=== PATIENT | male | born 1955 | race Caucasian/White ===

== ENCOUNTER → 2020-10-02 15:25 | Outpatient (BNVA) | payer MEDICARE, MEDICAID, SELFPAY | PROVIDERS: PCP Family Medicine; Visit Provider Nurse Practitioner Family | DX: M96.1 Postlaminectomy syndrome, not elsewhere classified (principal) | CPT/HCPCS: 99202 ==

== ENCOUNTER → 2020-10-16 15:30 | Outpatient (BNVA) | payer MEDICARE, MEDICAID, SELFPAY | PROVIDERS: PCP Family Medicine; Visit Provider Nurse Practitioner Family | DX: M96.1 Postlaminectomy syndrome, not elsewhere classified (principal); M54.2 Cervicalgia; M54.16 Radiculopathy, lumbar region; G62.9 Polyneuropathy, unspecified | CPT/HCPCS: 99212 ==

== ENCOUNTER → 2020-10-30 15:30 | Outpatient (BNVA) | payer MEDICARE, MEDICAID, SELFPAY | PROVIDERS: PCP Family Medicine; Visit Provider Nurse Practitioner Family | DX: Z13.89 Encounter for screening for other disorder (principal) | CPT/HCPCS: 99212 ==

== ENCOUNTER → 2020-11-27 14:57 | Outpatient (BNVA) | payer MEDICARE, MEDICAID, SELFPAY | PROVIDERS: PCP Family Medicine; Visit Provider Nurse Practitioner Family | DX: M54.16 Radiculopathy, lumbar region (principal) | CPT/HCPCS: 99212 ==

== ENCOUNTER → 2020-12-25 14:55 | Outpatient (BNVA) | payer MEDICARE, MEDICAID, SELFPAY | PROVIDERS: PCP Family Medicine; Visit Provider Nurse Practitioner Family | DX: M54.16 Radiculopathy, lumbar region (principal); Z79.899 Other long term (current) drug therapy | CPT/HCPCS: 99212 ==

== ENCOUNTER → 2021-02-19 13:49 | Outpatient (BNVA) | payer MEDICARE, MEDICAID, SELFPAY | PROVIDERS: PCP Family Medicine; Visit Provider Nurse Practitioner Family | DX: Z51.81 Encounter for therapeutic drug level monitoring (principal); M54.16 Radiculopathy, lumbar region | CPT/HCPCS: 99212 ==

== ENCOUNTER 2021-03-05 13:32 | Outpatient (REF) | payer MEDICARE, MEDICAID, SELFPAY | END 2021-03-05 13:33 | disposition home or self-care (01) | LOC: HO.MRI 13:32 | PROVIDERS: Visit Provider Nurse Practitioner Family | DX: Z13.89 Encounter for screening for other disorder (principal) ==

== ENCOUNTER → 2021-04-09 12:46 | Outpatient (BNVA) | payer MEDICARE, MEDICAID, SELFPAY | PROVIDERS: Visit Provider Nurse Practitioner Family | DX: M54.2 Cervicalgia (principal); M54.16 Radiculopathy, lumbar region; M53.9 Dorsopathy, unspecified | CPT/HCPCS: 99212 ==

== ENCOUNTER → 2021-06-04 12:57 | Outpatient (BNVA) | payer MEDICARE, MEDICAID, SELFPAY | PROVIDERS: PCP Family Medicine; Visit Provider Nurse Practitioner Family | DX: Z51.81 Encounter for therapeutic drug level monitoring (principal); F11.20 Opioid dependence, uncomplicated; M54.2 Cervicalgia; M54.16 Radiculopathy, lumbar region; M53.9 Dorsopathy, unspecified | CPT/HCPCS: 99212 ==

== ENCOUNTER → 2021-06-13 13:15 | Outpatient (BNVA) | payer MEDICARE, MEDICAID, SELFPAY | PROVIDERS: PCP Family Medicine; Visit Provider Nurse Practitioner Family | DX: G20 Parkinson's disease (principal); G47.12 Idiopathic hypersomnia without long sleep time; G47.33 Obstructive sleep apnea (adult) (pediatric); E83.10 Disorder of iron metabolism, unspecified; H81.399 Other peripheral vertigo, unspecified ear | CPT/HCPCS: 99212 ==

== ENCOUNTER → 2021-07-30 10:13 | Outpatient (BNVA) | payer MEDICARE, MEDICAID, SELFPAY | PROVIDERS: PCP Family Medicine; Visit Provider Nurse Practitioner Family | DX: M54.2 Cervicalgia (principal); M54.16 Radiculopathy, lumbar region; M53.9 Dorsopathy, unspecified | CPT/HCPCS: 99212 ==

== ENCOUNTER → 2021-09-12 13:25 | Outpatient (BNVA) | payer MEDICARE, MEDICAID, SELFPAY | PROVIDERS: PCP Family Medicine; Visit Provider Nurse Practitioner Family | DX: G20 Parkinson's disease (principal); G47.12 Idiopathic hypersomnia without long sleep time; G47.33 Obstructive sleep apnea (adult) (pediatric); Z79.899 Other long term (current) drug therapy | CPT/HCPCS: 99212 ==

== ENCOUNTER → 2021-09-24 12:50 | Outpatient (BNVA) | payer MEDICARE, MEDICAID, SELFPAY | PROVIDERS: PCP Family Medicine; Visit Provider Nurse Practitioner Family | DX: M54.16 Radiculopathy, lumbar region (principal); M54.2 Cervicalgia; M53.9 Dorsopathy, unspecified; Z79.891 Long term (current) use of opiate analgesic | CPT/HCPCS: 99212 ==

== ENCOUNTER → 2021-11-19 12:39 | Outpatient (BNVA) | payer MEDICARE, MEDICAID, SELFPAY | PROVIDERS: PCP Family Medicine; Visit Provider Nurse Practitioner Family | DX: Z79.891 Long term (current) use of opiate analgesic (principal) | CPT/HCPCS: 99211 ==

== ENCOUNTER → 2022-01-14 12:47 | Outpatient (BNVA) | payer MEDICARE, MEDICAID, SELFPAY | PROVIDERS: PCP Family Medicine; Visit Provider Nurse Practitioner Family | DX: M53.9 Dorsopathy, unspecified (principal); M54.16 Radiculopathy, lumbar region; M54.2 Cervicalgia; Z79.891 Long term (current) use of opiate analgesic | CPT/HCPCS: 99212 ==

== ENCOUNTER → 2022-02-25 08:21 | Outpatient (BNVA) | payer MEDICARE, MEDICAID, SELFPAY | PROVIDERS: PCP Family Medicine; Visit Provider Nurse Practitioner Family | DX: G20 Parkinson's disease (principal); G47.33 Obstructive sleep apnea (adult) (pediatric); G47.12 Idiopathic hypersomnia without long sleep time; Z79.899 Other long term (current) drug therapy | CPT/HCPCS: 99212 ==

== ENCOUNTER → 2022-03-11 13:08 | Outpatient (BNVA) | payer MEDICARE, MEDICAID, SELFPAY | PROVIDERS: PCP Family Medicine; Visit Provider Anesthesiology | DX: M54.2 Cervicalgia (principal); M54.16 Radiculopathy, lumbar region; M53.9 Dorsopathy, unspecified; F11.90 Opioid use, unspecified, uncomplicated | CPT/HCPCS: 99212 ==

== ENCOUNTER → 2022-05-07 10:17 | Outpatient (BNVA) | payer MEDICARE, MEDICAID, SELFPAY | PROVIDERS: PCP Family Medicine; Visit Provider Anesthesiology | DX: Z51.81 Encounter for therapeutic drug level monitoring (principal); F11.20 Opioid dependence, uncomplicated; M54.2 Cervicalgia; M54.16 Radiculopathy, lumbar region; M53.9 Dorsopathy, unspecified | CPT/HCPCS: 99212 ==

== ENCOUNTER → 2022-06-25 12:51 | Outpatient (BNVA) | payer MEDICARE, MEDICAID, SELFPAY | PROVIDERS: PCP Family Medicine; Visit Provider Nurse Practitioner Family | DX: G20 Parkinson's disease (principal); R51.9 Headache, unspecified; U09.9 Post COVID-19 condition, unspecified; G89.29 Other chronic pain; G47.33 Obstructive sleep apnea (adult) (pediatric); G47.12 Idiopathic hypersomnia without long sleep time | CPT/HCPCS: 99212 ==

== ENCOUNTER → 2022-07-02 12:58 | Outpatient (BNVA) | payer MEDICARE, MEDICAID, SELFPAY | PROVIDERS: PCP Family Medicine; Visit Provider Nurse Practitioner Family | DX: Z51.81 Encounter for therapeutic drug level monitoring (principal); F11.20 Opioid dependence, uncomplicated; M53.9 Dorsopathy, unspecified; M96.1 Postlaminectomy syndrome, not elsewhere classified; M54.16 Radiculopathy, lumbar region; M54.2 Cervicalgia | CPT/HCPCS: 99212 ==

== ENCOUNTER → 2022-08-27 13:02 | Outpatient (BNVA) | payer MEDICARE, MEDICAID, SELFPAY | PROVIDERS: PCP Family Medicine; Visit Provider Anesthesiology ==

== ENCOUNTER → 2022-10-22 12:48 | Outpatient (BNVA) | payer MEDICARE, MEDICAID, SELFPAY | PROVIDERS: PCP Family Medicine; Visit Provider Nurse Practitioner Family | DX: M96.1 Postlaminectomy syndrome, not elsewhere classified (principal); M53.9 Dorsopathy, unspecified; M54.12 Radiculopathy, cervical region; M54.16 Radiculopathy, lumbar region; M54.2 Cervicalgia; U09.9 Post COVID-19 condition, unspecified; R51.9 Headache, unspecified; Z79.891 Long term (current) use of opiate analgesic | CPT/HCPCS: 99212 ==

== ENCOUNTER 2022-12-14 13:25 | Outpatient (REF) | payer MEDICARE, MEDICAID, SELFPAY | END 2022-12-14 13:26 | disposition home or self-care (01) | LOC: HO.LAB 13:25 | PROVIDERS: PCP Family Medicine; Visit Provider Nurse Practitioner Family | DX: F41.9 Anxiety disorder, unspecified (principal); R53.83 Other fatigue; Z79.891 Long term (current) use of opiate analgesic | CPT/HCPCS: 36415; 84443; 99211 ==

== ENCOUNTER 2023-01-14 12:59 | Outpatient (AMB) | payer MEDICARE, MEDICAID, SELFPAY ==
[2023-01-14 13:02] VITALS: BP 142/78; PULSE 95; O2SAT 97; BMI 40.8
--- NOTE | 2023-01-14 13:02 | MHC.OFFVIS ---
Intake Vital Signs 01/14/23 13:02 Height 5 ft 9 in Weight 276 lb BMI 40.8 BP 142/78 H Blood Pressure Location Rt brachial Position Sitting Pulse 95 Pulse Source Pulse Oximeter Pulse Oximetry (%) 97 Oxygen Delivery Method Room Air Intake Visit Reasons: Follow up - Confirmed Intake Note: Pt presents as a f/u for Parkinsons. Pt states I've been getting alot of panic attacks and alot of anxiety. Trailer Technician Required: No Allergies celecoxib [Celebrex] Allergy (Severe, Verified 01/14/23 13:09) face/eye swelling gabapentin Allergy (Intermediate, Verified 01/14/23 13:09) rash pregabalin Allergy (Intermediate, Verified 01/14/23 13:09) rash Medication List - Last Reconciled 01/14/23 by ADALBERTO Martin albuterol sulfate 90 mcg/actuation 2 inhalations inhalation Q6-8H blood sugar diagnostic (Applied [employer] TechnologyTouch Ultra Test strips) As directed buprenorphine HCl (Belbuca) 450 mcg buccal Q12H 30 days carbidopa-levodopa 25-100 mg 1 tab PO TID 30 days dextroamphetamine-amphetamine 10 mg ER (Adderall XR) 10 mg PO DAILY 30 days diltiazem HCl 240 mg PO DAILY doxazosin 4 mg PO BEDTIME fluticasone propionate 50 mcg/actuation 2 sprays intranasal DAILY insulin aspart U-100 15 units subcut TID insulin detemir U-100 (Levemir FlexTouch U-100 Insulin) 65 units subcut QPM lisinopril 40 mg PO DAILY lorazepam (Ativan) 2 mg (2 x 1 mg) PO DAILY PRN 1 day magnesium oxide 400 mg PO BEDTIME 30 days metformin ER 1,000 mg PO BID pen needle, diabetic (BD Sandy 2nd Gen Pen Needle) As directed riboflavin (vitamin B2) 200 mg (2 x 100 mg) PO BID 30 days spironolactone 25 mg PO BEDTIME spironolactone 50 mg PO DAILY tirzepatide (Mounjaro) 2.5 mg subcut QWEEK zolpidem 10 mg PO BEDTIME PRN 30 days HPI HPI Comments History of Present Illness Details 67-yr-old male presents for f/u visit. Pt denies any significant interval medical history changes. Brain MRI was normal, however possible C3-C4 disc herniation was seen. Pt did f/u w/ pain management on this who advsied pt to undergo c-spine MRI, however pt has been unable to do d/t increasing anxiety. Pt's current PD medication regimen: CD-LD 25-100mg- 1 tab at 10-11am and 10-11pm. stopped mid-day dose- did not feel ok on it. the CD-LD Er qhs caused increased anxiety/ruminating thoughts. Do medication effects last between doses: usually Pt's primary concerns are: Increased anxiety- causing him to self-isolate. He is unable to complete the c-spine MRI d/t new onset claustrophia. He feels he has no motivation. He does not have a psychologist. He states approx 23 yrs ago- had an in-pt psych admission for worsening anxiety- was dx'd w/ bipolar II. He denies any manic episodes, SI, or severe depression. He was tried on Gabapentin- caused rash, Zoloft- caused increased irritability, Recent TSH was 2.06 NL, he is f/b endocrinology for slowly growing thyroid gland. ADL's: Ind Swallowing: Usually ok, but some difficulty at times with drinking, and other times with pills if standing. Cough: Resolved Drooling: Drooling during the day at times Orthostatic lightheadedness: Rarely orthostatic lightheadedness Constipation: None. Freezing: At times Stiffness: More stiffness and soreness, especially in the morning. Has difficulty turning in bed. Tremor: Shaking stable Falls: None Hallucinations: May still see an occasional shadow Memory: May lose his train of thought or have STM lapses Sleep: Somedays sleeping ok with CPAP but other days the anxiety interferes with his ability to fall asleep so he has to get up- tends to go to bed late (1-3am) and wake up late. Using Adderall XR prn if he has something to do during the day. Exercise: Has not had the energy to do much. Other: The headaches are no longer constant but still has a bothersome headache 3-4 times a week [facility] Medical History Bipolar 2 disorder Surgical History H/O neck surgery History of cholecystectomy History of knee replacement S/P laser cataract surgery Family History Father Heart attack Mother Congestive heart failure Social History (Updated 01/14/23 @ 13:11 by Sima Coker CMA) Household Members: Significant Other Alcohol intake: never Patient Tobacco Use Status: Former Tobacco user Quit Date: >20 yrs ago Review of Systems Const All systems reviewed & are unremarkable except as noted in HPI and below Physical Exam Vital Signs: Last Vital Signs Pulse 95 01/14/23 13:02 BP 142/78 H 01/14/23 13:02 Pulse Ox 97 01/14/23 13:02 Oxygen Delivery Method Room Air 01/14/23 13:02 BMI result Body Mass Index 40.8 Const General: cooperative and no acute distress Resp Effort & Inspection: normal respiratory effort and able to speak in complete sentences Neuro Other: Expression:? Mild decreased expression blink Voice:? Soft voice Tremor:? Mild postural tremor today FFM: mildly decreased Foottaps: mildly decreased Gait:? Stands up today, decreased arm swing steady gait Psych:? Pleasant affect General: patient oriented x3 and CN's II-XI intact bilaterally Assessment & Plan Assessment & Plan (1) Anxiety: Code(s): F41.9 - Anxiety disorder, unspecified (2) Parkinson disease: Comment: Positive JOELLEN scan, tremor, stiffness Code(s): G20 - Parkinson's disease Plan For PD: Reviewed MRI - normal. Pt to f/u w/ pain management r/t c-spine findings. Continue carbidopa levodopa 25-100mg 1 tab bid- tid. For anxiety in setting of h/o bipolar type II: Will refer pt for psychotherapy. Will reach out to [facility]- to see if they are taking new pt's again and could see this pt. Trial Trileptal 150mg bid. Check CBC and CMP, and then CBC and BMP in 6 weeks. Would avoid SSRI/SNRI d/t h/o SSRI use causing worsening mood. For SANDRO and fatigue: Continue CPAP. Continue Adderall 10 mg ER q.a.m. prn. Future considerations- increasing Adderall, trying Sunosi. (would need to ensure HTN well-controlled). For headache: Continue B2 and Mag for migraine prevention. Previous headache tx trials: Amitriptyline- caused am drowsiness. Nortriptyline- not tolerated. will f/u upon review of labs and f/u in clinic in 3 months or sooner prn. Orders: Orders Comprehensive Met. Panel Today F41.9 - Anxiety disorder, unspecified, G20 - Parkinson's disease, G62.9 - Polyneuropathy, unspecified Complete Blood Count Auto Diff Today F41.9 - Anxiety disorder, unspecified, G20 - Parkinson's disease, G62.9 - Polyneuropathy, unspecified Basic Metabolic Panel Today F41.9 - Anxiety disorder, unspecified, G20 - Parkinson's disease, G62.9 - Polyneuropathy, unspecified Referrals Psychology Referral F41.9 - Anxiety disorder, unspecified, G20 - Parkinson's disease Medications: New oxcarbazepine 150 mg PO BID 30 days 60 tabs 3RF Coding Level of Care Code Est Pt Level 4 (68647) Diagnoses Anxiety F41.9 Parkinson disease G20
== END 2023-01-14 14:00 | disposition home or self-care (01) ==
PROVIDERS: PCP Family Medicine; Visit Provider Nurse Practitioner Family
DX: F41.9 Anxiety disorder, unspecified (principal); G20 Parkinson's disease
CPT/HCPCS: 99214

== ENCOUNTER → 2023-01-14 12:59 | Outpatient (BNVA) | payer MEDICARE, MEDICAID, SELFPAY | PROVIDERS: PCP Family Medicine; Visit Provider Nurse Practitioner Family | DX: G20 Parkinson's disease (principal); F41.9 Anxiety disorder, unspecified; Z79.899 Other long term (current) drug therapy | CPT/HCPCS: 99212 ==

== ENCOUNTER → 2023-02-10 12:31 | Outpatient (BNVA) | payer MEDICARE, MEDICAID, SELFPAY | PROVIDERS: PCP Family Medicine; Visit Provider Anesthesiology | DX: Z51.81 Encounter for therapeutic drug level monitoring (principal); F11.20 Opioid dependence, uncomplicated | CPT/HCPCS: 99211 ==

== ENCOUNTER 2023-04-12 12:43 | Outpatient (AMB) | payer MEDICARE, MEDICAID, SELFPAY ==
--- NOTE | 2023-04-12 13:00 | MHC.OFFVIS ---
Intake Vital Signs 04/12/23 13:08 Height 5 ft 9 in Weight 263 lb BMI 38.8 BP 136/80 Blood Pressure Location Lt brachial Position Sitting Respiration 16 Pulse 89 Pulse Source Pulse Oximeter Pulse Oximetry (%) 96 Oxygen Delivery Method Room Air Intake Visit Reasons: Pill count/LMOVM Intake Note: Patient comes in for pill count to Buprenorphine film. Allergies celecoxib [Celebrex] Allergy (Severe, Verified 04/12/23 13:08) face/eye swelling gabapentin Allergy (Intermediate, Verified 04/12/23 13:08) rash pregabalin Allergy (Intermediate, Verified 04/12/23 13:08) rash HPI HPI Comments History of Present Illness Details Patient is a pleasant 67 years old male who returns today for a film count. Patient is supposed to have 38 films in his possession and has 44 films is his possession.. This demonstrates a responsible attitude in regards to the medication regimen. Patient reports he is able to function more independently with this regimen as well as adequate analgesia, with no noted side effects. Patient reports he has dentures, denies mouth sores or pain, uses mouthwash regularly and has regular dental visits. Patient reports increasing neck pain that radiates up to his bilateral occipital areas and shoulders and into left lateral upper arm but not below elbow level with numbness and tingling and mild weakness in his left lower arm. Patient has history of C6-C7 fusion in 2009. We will proceed with updating his cervical spine MRI. PRIOR: Brian is a pleasant 65 year old male who presents to the office with complaints of neck, low back pain as well as peripheral neuropathy. He underwent a C6-C7 fusion with Dr. Tabor in 2009 at [facility]. He states the pain started years ago without any inciting events, but in the past few months has been more exacerbated. His back pain starts midline and radiates towards the right and laterally down the right leg to entire foot with associated muscle spasms, numbness and tingling. Denies any weakness, saddle anesthesia or bowel/bladder dysfunction. He also notes progressively worsening burning sensation of bilateral feet. In the past he was under the care of pain management providers who attempted lidocaine and ketamine infusion with no alleviation in his pain. He also reports receiving botox injections in his lower back with no improvement. He is unable to have steroid injections due to the significant elevation in blood glucose. He was started on belbuca 600 mg BID and has reported good alleviation in his pain. Unfortunately, his previous provider is quite a distance away and would like to continue his prescription here, as well as discuss other interventional treatment options. Of note, he is being sent on 10/04 for a PET scan by his neurologist from [facility] to rule out Parkinson's disease, as he has had increasing difficulty with ambulation, mood changes, slowed blinking, hypersomnia and muscle spasms. Asthma, COPD, HTN, DMII, CKD, s/p adrenalectomy secondary to hyperaldosteronism, SANDRO, He is currently managed on Metformin and insulin with an A1c of 7.6%. [facility] Medical History (Updated 02/11/23 @ 21:25 by ADALBERTO Martin) Bipolar 2 disorder Surgical History S/P laser cataract surgery History of cholecystectomy History of knee replacement H/O neck surgery Family History Father Heart attack Mother Congestive heart failure Social History (Updated 01/14/23 @ 13:11 by Sima Coker CMA) Household Members: Significant Other Alcohol intake: never Patient Tobacco Use Status: Former Tobacco user Quit Date: >20 yrs ago Review of Systems Const All systems reviewed & are unremarkable except as noted in HPI and below ENT Reports Normal hearing present Neuro Reports Normal hearing present, Denies Abnormal speech present and Denies confusion Psych Denies confusion Physical Exam Vital Signs: Last Vital Signs Pulse 89 04/12/23 13:08 Resp 16 04/12/23 13:08 BP 136/80 04/12/23 13:08 Pulse Ox 96 04/12/23 13:08 Oxygen Delivery Method Room Air 04/12/23 13:08 BMI result Body Mass Index 38.8 Const General: cooperative, healthy appearing, no acute distress, alert and well groomed; No confusion Nutritional Appearance: well nourished and obese Orientation/consciousness: patient oriented x3 and No confusion HEENT Head: Yes normal to inspection, Yes normocephalic and Yes atraumatic Ears: hearing grossly normal bilaterally Eyes General: appearance normal, both eyes and all related structures Visual Cantrell: normal visual cantrell by confrontation Pupils: Equal, round and reactive pupils present EOM: EOMs intact bilaterally Neck Other: Patient with decreased cervical ROM in all planes/especially with left lateral rotation. Reports increased pain with cervical extension and flexion. Spurling compression test positive. Pain is unchanged by Spurling maneuver with retraction. Elvey's tension test positive bilaterally, with radiation of pain from neck to lateral upper arm and elbow. Lhermitte's test was negative. Diminished DTR and symmetrical. Patient demonstrated 5/5 motor strength of bilateral upper extremities. 2 + radial pulses. Neck: Yes normal visual inspection, Yes no lymphadenopathy, No anterior neck swelling and Yes no JVD Resp Effort & Inspection: normal respiratory effort, able to speak in complete sentences, no audible wheezes, no cough and symmetric chest movement Cardio Jugular venous distension: no JVD Peripheral pulses: Peripheral pulses 2+ throughout GI Inspection: Yes normal to inspection, No distended and Yes obesity Palpation (GI): Soft to palpation and no guarding Back/Spine/Pelvis Cervical Spine: loss of normal cervical lordosis, cervical muscular tenderness, pain with cervical ROM, Cervical spine scars present, No Cervical spine tenderness and No step off deformity Thoracic/Lumbar Spine: thoraco-lumbar ROM limited, No thoracic spinal tenderness and No lumbar spinal tenderness Neuro General: patient oriented x3, moves all extremities and No confusion Cranial nerves: Yes Equal, round and reactive pupils present and Yes Normal hearing present Cognition (Neuro): normal cognition Speech: No Abnormal speech present Psych Appearance: grossly normal and well kempt Mental Status: mental status grossly normal Speech and movement: Normal speech and movement present Affect: normal affect Attitude: cooperative Thought process: Normal thought process present Thought content: Normal thought content present, suicidality (none), no hallucinations and No Depressive thoughts present Insight: Good insight present (Psych) Judgement: Good judgement present (Psych) Assessment & Plan Assessment & Plan (1) Post-laminectomy syndrome: Code(s): M96.1 - Postlaminectomy syndrome, not elsewhere classified (2) Multilevel degenerative disc disease: Code(s): M53.9 - Dorsopathy, unspecified (3) Cervical radiculopathy: Code(s): M54.12 - Radiculopathy, cervical region (4) Multilevel degenerative disc disease: Code(s): M53.9 - Dorsopathy, unspecified (5) Lumbar radiculopathy, right: Code(s): M54.16 - Radiculopathy, lumbar region (6) Cervicalgia: Code(s): M54.2 - Cervicalgia Plan Patient has shown accountability for his medication regimen and the film count was accurate. The patient reported no noted side effects with adequate analgesia mainly for his cervical and lumbar spine pain generators. There is no evidence of misuse, abuse or diversion at this time. [employer] reviewed. I will send in prescription for Belbuca 450 mcg BID for 30 days with an advanced date of 05/02/2023 and one refill. Medications: Refilled buprenorphine HCl (Belbuca) Partial Fill upon patient request. 450 mcg buccal Q12H 60 ea 1RF pain 30 days M53.9 - Dorsopathy, unspecified, M54.16 - Radiculopathy, lumbar region, M96.1 - Postlaminectomy syndrome, not elsewhere classified Coding Level of Care Code Est Pt Level 3 (87764) Diagnoses Post-laminectomy syndrome M96.1 Multilevel degenerative disc disease M53.9 Cervical radiculopathy M54.12 Lumbar radiculopathy, right M54.16 Cervicalgia M54.2
[2023-04-12 13:08] VITALS: BP 136/80; PULSE 89; RESP 16; O2SAT 96; BMI 38.8
== END 2023-04-12 13:15 | disposition home or self-care (01) ==
PROVIDERS: PCP Family Medicine; Visit Provider Anesthesiology
DX: M96.1 Postlaminectomy syndrome, not elsewhere classified (principal); M53.9 Dorsopathy, unspecified; M54.12 Radiculopathy, cervical region; M54.16 Radiculopathy, lumbar region; M54.2 Cervicalgia
CPT/HCPCS: 99213

== ENCOUNTER 2023-04-12 13:27 | Outpatient (REF) | payer MEDICARE, MEDICAID, SELFPAY ==
[2023-04-12 13:41] LABS: MANUAL DIFF FLAG NO
[2023-04-12 14:58] LABS: Basophils Percent Auto 0.7 % (0-2); Eosinophils Absolute Auto 0.4 X10*3/uL (0.0-0.4); Eosinophils Percent Auto 6.7 % (0-4); Hematocrit 41.9 % (42.0-52.0); Hemoglobin 13.8 g/dl (14.0-18.0); Imm Gran Abs Auto 0.03 X10*3/uL (0.00-0.03); Imm Gran Pct Auto 0.5 % (0.0-0.4); Lymphocytes Absolute Auto 1.5 X10*3/uL (1.2-4.9); Lymphocytes Percent Auto 25.1 % (20-40); Mean Corpuscular HGB Conc 32.9 g/dl (31.0-36.0); Mean Corpuscular Hemoglobin 30.1 pg (27.0-33.0); Mean Corpuscular Volume 91.5 fL (80.0-98.0); Mean Platelet Volume 10.2 fL (9.4-12.4); Monocytes Absolute Auto 0.4 X10*3/uL (0.1-1.2); Monocytes Percent Auto 7.2 % (2-11); Neutrophils Absolute Auto 3.5 x10*3/uL (2.0-8.3); Neutrophils Percent Auto 59.8 % (45-73); Platelet Count 248 X10*3/uL (160-400); Red Blood Count 4.58 X10*6/uL (4.60-5.80); Red Cell Distribution Width 12.2 % (11.0-16.0); White Blood Count 5.8 X10*3/uL (4.8-10.8)
[2023-04-12 15:33] LABS: Alanine Aminotransferase 17 U/L (0-40); Albumin Level 4.3 g/dL (3.5-5.0); Alkaline Phosphatase 54 U/L (39-117); Anion Gap 15 (12-20); Aspartate Amino Transferase 38 U/L (5-37); Bilirubin Total 0.3 mg/dL (0.0-1.0); Blood Urea Nitrogen 16 mg/dL (9-16); Calcium 9.5 mg/dL (8.4-10.2); Carbon Dioxide 26 mmol/L (22-29); Chloride 105 mmol/L (96-108); Estimated Glomerular Filt Rate > 60; Glucose Random 140 mg/dL (60-115); Potassium 4.3 mmol/L (3.3-5.1); Sodium 142 mmol/L (135-145); Total Protein 7.8 g/dL (6.5-8.0)
== END 2023-04-12 13:28 | disposition home or self-care (01) ==
LOC: HO.LAB 13:27
PROVIDERS: PCP Family Medicine; Visit Provider Nurse Practitioner Family
DX: G62.9 Polyneuropathy, unspecified (principal); F41.9 Anxiety disorder, unspecified; G20.C Parkinsonism, unspecified
CPT/HCPCS: 36415; 80053; 85025; 99212

== ENCOUNTER 2023-04-28 13:26 | Outpatient (AMB) | payer MEDICARE, MEDICAID, SELFPAY ==
[2023-04-28 13:34] VITALS: BP 132/70; PULSE 85; O2SAT 97; BMI 39.1
--- NOTE | 2023-04-28 13:34 | A.OFFVIS_ITS ---
Intake Vital Signs 04/28/23 13:34 Height 5 ft 9 in Weight 264 lb 8 oz BMI 39.1 BP 132/70 Blood Pressure Location Rt brachial Position Sitting Pulse 85 Pulse Source Pulse Oximeter Pulse Oximetry (%) 97 Oxygen Delivery Method Room Air Intake Visit Reasons: 3m Follow up-LVM Intake Note: Pt presents to the office today for a 3 month follow up. Pt states he still doesn't fall asleep till 2-4am in the morning and will wake up around 10am. Pt states he is always tired. Pt states the adderall used to help in the beginning but believes its no longer helpful. Pt states he constantly has headaches as well but that started after he had COVID about a year ago. Allergies celecoxib [Celebrex] Allergy (Severe, Verified 04/28/23 13:37) face/eye swelling gabapentin Allergy (Intermediate, Verified 04/28/23 13:37) rash pregabalin Allergy (Intermediate, Verified 04/28/23 13:37) rash Medication List - Last Reconciled 04/28/23 by ADALBERTO Martin albuterol sulfate 90 mcg/actuation 2 inhalations inhalation Q6-8H blood sugar diagnostic ([employer] MedicalTouch Ultra Test strips) As directed buprenorphine HCl (Belbuca) 450 mcg buccal Q12H 30 days carbidopa-levodopa 25-100 mg 1 tab PO TID 30 days dextroamphetamine-amphetamine 10 mg ER (Adderall XR) 10 mg PO DAILY 30 days diltiazem HCl 240 mg PO DAILY doxazosin 4 mg PO BEDTIME fluticasone propionate 50 mcg/actuation 2 sprays intranasal DAILY insulin aspart U-100 15 units subcut TID insulin detemir U-100 (Levemir FlexTouch U-100 Insulin) 65 units subcut QPM lisinopril 40 mg PO DAILY lorazepam (Ativan) 2 mg (2 x 1 mg) PO DAILY PRN 1 day magnesium oxide 400 mg PO BEDTIME 30 days metformin ER 1,000 mg PO BID oxcarbazepine 150 mg PO BID 30 days pen needle, diabetic (BD Sandy 2nd Gen Pen Needle) As directed riboflavin (vitamin B2) 200 mg (2 x 100 mg) PO BID 30 days spironolactone 25 mg PO BEDTIME spironolactone 50 mg PO DAILY tirzepatide (Mounjaro) 2.5 mg subcut QWEEK zolpidem 10 mg PO BEDTIME PRN 30 days HPI HPI Comments History of Present Illness Details 67-yr-old male presents for f/u visit. Pt denies any significant interval medical history changes. Pt did see Dr Kranthi Mabry MD to discuss mood dx and tx options. Per pt, Dr Mabry has provided recommendations but will not be following with him. Dr Mabry did arrange for pt to start seeing a therapist. Pt continues to struggle with depression and anxiety. He did stop Trileptal- was not tolerating. Pt's current PD medication regimen: CD-LD 25-100mg 1 tab bid. ADL's: Ind Swallowing: Less often Drooling: Some- not too much Orthostatic lightheadedness: None Constipation: Occasionally Freezing: A bit more often Stiffness: Some increased Tremor: Shaking more Falls: None Hallucinations: Seeing more colors than shadows now Memory: LTM is ok. Finds STM is a bit worse- forgets what he may do, or have w ord finding difficulty Sleep: He is feeling that the Adderall is not working as well. Exercise: None. States his BLE diabetic neuropathy pain limits exercise. [facility] Medical History Bipolar 2 disorder Surgical History S/P laser cataract surgery History of cholecystectomy History of knee replacement H/O neck surgery Family History Father Heart attack Mother Congestive heart failure Household Members: Significant Other Alcohol intake: never Patient Tobacco Use Status: Former Tobacco user Quit Date: >20 yrs ago Review of Systems Const All systems reviewed & are unremarkable except as noted in HPI and below Physical Exam Vital Signs: Last Vital Signs Pulse 85 04/28/23 13:34 BP 132/70 04/28/23 13:34 Pulse Ox 97 04/28/23 13:34 Oxygen Delivery Method Room Air 04/28/23 13:34 BMI result Body Mass Index 39.1 Const General: cooperative and no acute distress Resp Effort & Inspection: normal respiratory effort and able to speak in complete sentences Neuro Other: General: A&O x's 3 Expression:? Mild decreased expression blink Voice:? Soft voice Tremor:? No tremor today FFM: mildly decreased Foottaps: mildly decreased Gait:? Stands up today, decreased arm swing steady gait Psych:? Pleasant affect Assessment & Plan Assessment & Plan (1) Parkinson disease: Comment: Positive JOELLEN scan, tremor, stiffness Code(s): G20 - Parkinson's disease (2) Fatigue: Code(s): R53.83 - Other fatigue (3) Anxiety: Code(s): F41.9 - Anxiety disorder, unspecified (4) Bipolar disorder, unspecified: Code(s): F31.9 - Bipolar disorder, unspecified Plan For PD: Continue carbidopa levodopa 25-100mg 1 tab bid, may take tid as needed. For anxiety in setting of h/o bipolar d/o: Reviewed Dr Mabry's note w/ pt. Pt has stopped Trileptal. Will start pt on?lamotrigine 25 mg daily?x two weeks, then increase to 50 mg?daily x two weeks, then 100 mg daily x 2 weeks, and then 200 mg. Reviewed s/e's including to report any s/s rash or skin changes. Concur w/ starting psychotherapy Future considerations- adjuncting w/ Wellbutrin and possibly weaning off Ambien. For SANDRO and fatigue: Continue CPAP. Increase Adderall from 10 mg to 15mg ER q.a.m. prn. Pt may benefit from reading/listening to [employer] [place] [employer] Insomnia by Dr Jordin Valencia or similar CBTi resources. Future considerations- increasing Adderall, trying Sunosi. (would need to ensure HTN well-controlled). For headache: Continue B2 and Mag for migraine prevention. Previous headache tx trials: Amitriptyline- caused am drowsiness. Nortriptyline- not tolerated. will f/u in 1-1.5 months or sooner prn. Medications: New dextroamphetamine-amphetamine 15 mg ER (Adderall XR) Partial Fill upon patient request. 15 mg PO QAM PRN 30 caps 0RF drowsiness 30 days lamotrigine 1 tab qhs x's 2 wks, then 2 tabs qhs x's 2 wks orally daily; then increase to 100mg qhs x's 2 wks, then 200mg qhs 42 tabs 0RF 28 days lamotrigine 1 tab qhs x's 2 wks, then 2 tabs qhs orally daily; 60 tabs 2RF 30 days Discontinued dextroamphetamine-amphetamine 10 mg ER (Adderall XR) Discontinued Reason: Doctor's Order 10 mg PO DAILY 30 caps 0RF 30 days Coding Level of Care Code Est Pt Level 4 (92001) Diagnoses Parkinson disease G20 Fatigue R53.83 Anxiety F41.9 Bipolar disorder, unspecified F31.9
== END 2023-04-28 14:35 | disposition home or self-care (01) ==
PROVIDERS: PCP Family Medicine; Visit Provider Nurse Practitioner Family
DX: G20.A2 Parkinson's disease without dyskinesia, with fluctuations (principal); R53.83 Other fatigue; F41.9 Anxiety disorder, unspecified; F31.9 Bipolar disorder, unspecified
CPT/HCPCS: 99214

== ENCOUNTER → 2023-04-28 13:26 | Outpatient (BNVA) | payer MEDICARE, MEDICAID, SELFPAY | PROVIDERS: PCP Family Medicine; Visit Provider Nurse Practitioner Family | DX: G20.A1 Parkinson's disease without dyskinesia, without mention of fluctuations (principal); R53.83 Other fatigue; F31.9 Bipolar disorder, unspecified; F41.9 Anxiety disorder, unspecified | CPT/HCPCS: 99212 ==

== ENCOUNTER 2024-02-18 13:47 | Outpatient (AMB) | payer MEDICARE, MEDICAID, SELFPAY ==
--- NOTE | 2024-02-18 13:51 | A.OFFVIS_ITS ---
Vital Signs 02/18/24 13:52 Height 5 ft 9 in Weight 242 lb BMI 35.7 BP 144/74 H Blood Pressure Location Rt brachial Position Sitting Pulse 74 Pulse Source Pulse Oximeter Pulse Oximetry (%) 96 Intake Visit Reasons: Follow Up Intake Note: Patient presents for follow up Allergies celecoxib [Celebrex] Allergy (Severe, Verified 02/18/24 13:55) face/eye swelling gabapentin Allergy (Intermediate, Verified 02/18/24 13:55) rash pregabalin Allergy (Intermediate, Verified 02/18/24 13:55) rash Medication List - Last Reconciled 02/18/24 by ADALBERTO Martin albuterol sulfate 90 mcg/actuation 2 inhalations inhalation Q6-8H blood sugar diagnostic (Hitmeister Ultra Test strips) As directed buprenorphine HCl (Belbuca) 450 mcg buccal Q12H 30 days carbidopa-levodopa 25-100 mg 1 tab PO TID 30 days dextroamphetamine sulfate ER 15 mg PO DAILY 30 days dextroamphetamine-amphetamine 15 mg ER (Adderall XR) 15 mg PO QAM PRN 30 days diltiazem HCl CD 360 mg PO DAILY doxazosin 8 mg PO BEDTIME fluticasone propionate 50 mcg/actuation 2 sprays intranasal DAILY gabapentin 300 mg PO BEDTIME insulin aspart U-100 15 units subcut TID insulin detemir U-100 (Levemir FlexTouch U-100 Insulin) 65 units subcut QPM lamotrigine 1 tab qhs x's 2 wks, then 2 tabs qhs orally daily; 30 days lisinopril 40 mg PO DAILY lorazepam (Ativan) 2 mg (2 x 1 mg) PO DAILY PRN 1 day magnesium oxide 400 mg PO BEDTIME 30 days metformin ER 1,000 mg PO BID oxcarbazepine 150 mg PO BID 30 days pen needle, diabetic (BD Sandy 2nd Gen Pen Needle) As directed riboflavin (vitamin B2) 200 mg (2 x 100 mg) PO BID 30 days spironolactone 25 mg PO BEDTIME spironolactone 50 mg PO DAILY tirzepatide (Mounjaro) 2.5 mg subcut QWEEK zolpidem 10 mg PO BEDTIME PRN 30 days HPI Comments Details: 68-yr-old male presents for f/u visit of Parkinson's, SANDRO, hypersomnia. Pt was alst seen in Apr 2024. Pt reports he has had a significant weight loss- partly intentional and partly unintentional. He attributes this in apart d/t mami fleming. Pt did have Covid-19 in Jul. Pt also notes he stopped Belbuca as he has stopped seeing pain management. PCP retried him on Gabapentin 300mg as he had recurrence of burning/heat diabetic neuropathy pain in chad feet upon stopping belbuca. He had a listed allergy to Gabapentin - rash, but is tolerating the Gabapentin well now, and it does seem to be helping the foot pain. Pt's current PD medication regimen: CD-LD 25-100mg 1 tab tid. Did increase the CD-LD from 1 tab bid to 1 tab tid as he was having some wearing off- more difficulty walking. In regards to PD, has good days and bad days. ADL's: Ind Swallowing: Has been having intermittent swallowing difficulty w/ fluids and less often solids. Notes he cannot take a drink standing up. Sometimes it will feel like solids just sit in the back of his trhoat. PCP has referred him for swallow study and now PRODUCTION CONTROL SPECIALIST. Drooling: Some- not as much Orthostatic lightheadedness: Occasionally, but does this slowly to avoid this. Constipation: More recently increased constipation- notes his metformin dose was decreased. Metamucil helps. Urinary symptoms: Was having some urinary frequency/urgency/feeling of incomplete voiding- helped w/ stopping carbonated bevergaes and increasing doxazosin. Gait changes: can feel unsteady after standing. CD-LD increase has helped him to walk better. Trying to focus on posture when walking. Fall: none Freezing: Rarely- if standing up from standing. Cramps/Spasms: Mostly in his feet and some in his hands. Sometimes arm just moves. Stiffness: Stable Tremor: Not too bad- but shakier after taking the destroamphetamine sulfate ER 15mg (also makes his BP rise, causes jitteriness, and causes headache). Mood: Has been a lot better. Not becoming as anxious. Not crying as much. He has started seeing a therapist- now every 4 months. Hallucinations: Seeing more colors than shadows now Memory: LTM is ok. Finds STM is a bit worse- forgets what he may do, or have word finding difficulty Sleep: Sleeping 6 hrs per night regardless of what time he goes to sleep. Not taking naps. Adderal was changed to dextroamphetamine sulfate ER per insurance formulary. Using the dextroamphetamine sulfate ER 15mg prn only about once a week as it causes his BP rise, causes jitteriness, and causes headache. He notes that the Adderal was much more effective and better tolerated. He is using less Ambien- may take half tab a night. Exercise: Walks a little bit. Cancelled gym membership as he was not using it. His resp s/s also limit his mobility. [facility] Medical History Bipolar 2 disorder Surgical History S/P laser cataract surgery History of cholecystectomy History of knee replacement H/O neck surgery Family History Father Heart attack Mother Congestive heart failure Social History Household Members: Significant Other Alcohol intake: never Patient Tobacco Use Status: Former Tobacco user Review of Systems Const All systems reviewed & are unremarkable except as noted in HPI and below Physical Exam Vital Signs: Last Vital Signs Pulse 74 02/18/24 13:52 BP 144/74 H 02/18/24 13:52 Pulse Ox 96 02/18/24 13:52 BMI result Body Mass Index 35.7 Const General: cooperative and no acute distress Resp Effort & Inspection: normal respiratory effort and able to speak in complete sentences Neuro Other: General: A&O x's 3 Expression:? Mild decreased expression blink Voice:? Soft voice Tremor:? No tremor today Dyskinesia: None FFM: mildly decreased Foottaps: mildly decreased, more so on left Gait:? Stands up today, slight stoop, decreased arm swing, stride ok, steady gait Psych:? Pleasant affect Assessment & Plan Assessment & Plan (1) Parkinson's disease without dyskinesia: Comment: Positive JOELLEN scan, tremor, stiffness Code(s): G20.A1 - Parkinson's disease without dyskinesia, without mention of fluctuations Category: Medical (2) Obstructive sleep apnea (adult) (pediatric): Code(s): G47.33 - Obstructive sleep apnea (adult) (pediatric) Category: Medical (3) Hypersomnia due to medical condition: Comment: d/t Parkinson's and SANDRO. Code(s): G47.14 - Hypersomnia due to medical condition Category: Medical Plan ? For PD, fatigue, SANDRO: Continue carbidopa levodopa 25-100mg 1 tab TID Concur w/ PRODUCTION CONTROL SPECIALIST and swallow eval- discussed strategies to break swallwoing diff c/w freezing epsiode. Continue CPAP. Stop dextroamphetamine sulfate 15mg ER- not tolerated. Resume Adderall at 15mg ER q.a.m. prn. Pt may benefit from reading/listening to [facility] Insomnia by Dr Jordin Valencia or similar CBTi resources. Future considerations- increasing Adderall, trying Sunosi. (would need to ensure HTN well-controlled).? For anxiety in setting of h/o bipolar d/o: Continue psychotherapy Pt previously had psych consult w/ Dr Mabry's note w/ pt. Pt has stopped Trileptal and lamotrigine. Monitor mood: ? For headache: Continue Mag for migraine prevention. Pt stopped B2. Previous headache tx trials: Amitriptyline- caused am drowsiness. Nortriptyline- not tolerated. ? will f/u in 6 months or sooner prn. Medications: New metformin 500 mg PO BID dextroamphetamine-amphetamine 15 mg ER (Adderall XR) Partial Fill upon patient request. 15 mg PO QAM 30 days 30 caps 0RF G20.A1 - Parkinson's disease without dyskinesia, without mention of fluctuations, G47.14 - Hypersomnia due to medical condition, G47.33 - Obstructive sleep apnea (adult) (pediatric) tirzepatide (Mounjaro) 5 mg subcut QWEEK Refilled carbidopa-levodopa 25-100 mg 1 tab PO TID 30 days 90 tabs 6RF Discontinued riboflavin (vitamin B2) Discontinued Reason: Patient no longer taking 200 mg (2 x 100 mg) PO BID 30 days 120 tabs 11RF lorazepam (Ativan) Take 2 tabs 30' before the procedure. Discontinued Reason: No Longer Medically Relevant 2 mg (2 x 1 mg) PO DAILY 1 day PRN 2 tabs 0RF MRI anxiety dextroamphetamine-amphetamine 15 mg ER (Adderall XR) Partial Fill upon patient request. Discontinued Reason: Patient Completed Course 15 mg PO QAM 30 days PRN 30 caps 0RF drowsiness buprenorphine HCl (Belbuca) Partial Fill upon patient request. Discontinued Reason: Patient no longer taking 450 mcg buccal Q12H 30 days 60 ea 1RF pain M53.9 - Dorsopathy, unspecified, M54.16 - Radiculopathy, lumbar region, M96.1 - Postlaminectomy syndrome, not elsewhere classified lamotrigine Discontinued Reason: Patient no longer taking 1 tab qhs x's 2 wks, then 2 tabs qhs orally daily; 30 days 60 tabs 2RF oxcarbazepine Discontinued Reason: Patient no longer taking 150 mg PO BID 30 days 60 tabs 3RF dextroamphetamine sulfate ER Partial Fill upon patient request. Discontinued Reason: Doctor's Order 15 mg PO DAILY 30 days 30 caps 0RF Coding Level of Care Code Est Pt Level 4 (60344) Diagnoses Parkinson's disease without dyskinesia G20.A1 Obstructive sleep apnea (adult) (pediatric) G47.33 Hypersomnia due to medical condition G47.14
[2024-02-18 13:52] VITALS: BP 144/74; PULSE 74; O2SAT 96; BMI 35.7
== END 2024-02-18 14:56 | disposition home or self-care (01) ==
PROVIDERS: PCP Family Medicine; Visit Provider Nurse Practitioner Family
DX: G20.A1 Parkinson's disease without dyskinesia, without mention of fluctuations (principal); G47.33 Obstructive sleep apnea (adult) (pediatric); G47.14 Hypersomnia due to medical condition
CPT/HCPCS: 99214

== ENCOUNTER → 2024-02-18 13:47 | Outpatient (BNVA) | payer MEDICARE, MEDICAID, SELFPAY | PROVIDERS: PCP Family Medicine; Visit Provider Nurse Practitioner Family | DX: G20.A1 Parkinson's disease without dyskinesia, without mention of fluctuations (principal); G47.33 Obstructive sleep apnea (adult) (pediatric); G47.14 Hypersomnia due to medical condition; M53.9 Dorsopathy, unspecified; M54.16 Radiculopathy, lumbar region; M96.1 Postlaminectomy syndrome, not elsewhere classified | CPT/HCPCS: 99212 ==

== ENCOUNTER → 2024-05-25 19:30 | Outpatient (REF) | payer MEDICARE, MEDICAID, SELFPAY | LOC: HO.SL 19:30 | PROVIDERS: PCP Family Medicine; Visit Provider Nurse Practitioner Family | DX: G47.14 Hypersomnia due to medical condition (principal) | CPT/HCPCS: 95810 ==

== ENCOUNTER → 2024-05-25 21:09 | Outpatient (BNV) | payer MEDICARE, MEDICAID, SELFPAY | PROVIDERS: PCP Family Medicine; Visit Provider Psychiatry & Neurology Neurology | DX: G47.33 Obstructive sleep apnea (adult) (pediatric) (principal) | CPT/HCPCS: 95810 ==

== ENCOUNTER 2024-05-26 16:08 | Outpatient (REF) | payer MEDICARE, MEDICAID, SELFPAY ==
--- OUTSIDE RECORDS SUMMARY | 2024-05-26 16:10 | XMS_ITS | Continuity of Care Document ---
Author Organization [facility] [address] [place] [address] Phone [phone] Care Team Providers Care Firm Administrator Name Role Phone Jason Owens M.D. Care Team Information Receiv er [phone] Problems Active Problems Provider Date Type 2 diabetes mellitus Graham Rothman M.D. Onset: 12/26/2021 Parkinson's disease Graham Rothman M.D. Onse t: 12/26/2021 Hypertensive disorder Graham Rothman M.D. On set: 12/26/2021 Obstructive sleep apnea syndrome Graham york M.D. Onset: 12/26/2021 Chronic hepatitis C Graham Rothman M.D. Onse t: 12/26/2021 Extraction of cataract Graham Rothman M.D. O nset: 01/06/2023 Social History Type Date Description Comments Sex Unknown Lives With Girlfriend Work Status Disabled ETOH Use Denies alcohol use Tobacco Use Start: Unknown End: Unknown Patient is a former smoker Allergies and adverse reactions Active Allergies Criticality Reaction Severity Comments Date Celebrex Unable to assess criticality 12/26/2021 Gabapentin Unable to assess criticality 12/26/2021 Lyrica Unable to assess criticality 12/26/2021 Neurontin Unable to assess criticality 12/26/2021 Medications Active Medications SIG Qnty Indications Order ing Provider Date Mounjaro7.5mg/0.5ML Solution Auto-Inject Inject 0.5 ML Every Week 6ml E11.9 Graham Rothman M.D. 4 Semglee (Yfgn)100Unit/ML Solution Pen-Inject inject 45 units subcutaneously once a day at night dx: e11.9 15ml Graham Rothman M.D. 4 Azptuvwtfc188hu Capsules 1 tablet by mouth at bedtime 90caps Graham Rothman M.D. 4 Freestyle Elsie 3/Sensor/Glucose Monitoring Vmqjwf2Qaadee Misc as directed 3units Graham Rothman M.D. 4 Careone Unifine Pen 32G X4mm Use One Needle Subcutaneously Four Times A Day 200units E11.9 Graham Rothman M.D. 3 Freestyle Elsie 2/Sensor/Flash Glucose Monitoring Sgcjfl8Mukkba Misc 1 sensor to skin every fourteen days as directed 6units Graham Rothman M.D. 3 Onetouch UltraStrips Use as Directed Fou r Times A Day DX: E11.9 400units E11.9 Graham Rothman M.D. 2 Magnesium Qhjyg745(240Mg) mg Tablets Take One Tablet By Mouth AT Bedtime Unknown 0 Lrlxnqmjcbqbna16qr Tablets Take Two Tablets By Mouth Every Day Unknown 0 Ventolin UMI011(90Base) mcg/Act Aerosol Inhale Two Puffs By Mouth Four Times A Day as Needed For Shortness Of Breath. Unknown [address] Take One Tablet By Mouth Twice A Day . Medication To Be Started After Surgery Unknown [address] Take One Tablet By Mouth Every Day . Medication For After Surgery Unknown 0 Wjwslancun57ip Tablets Take One Tablet By Mouth Every Day Unknown 0 Doxazosin Qyqvtiet9hs Tablets Take One Tablet By Mouth Every Day AT Bedtime Unknown 0 Magnesium Kjyje180(240Mg) mg Tablets Take One Tablet By Mouth AT Bedtime Unknown 0 Methylphenidate Hydrochloride ER20mg Caps ER 24HR Take One Capsule By Mouth Every Morning Unknown 0 Methylphenidate WQF95ma Tablets Take One Tablet By Mouth Every Afternoon as Needed For Drowsiness Unknown 00/00/000 0 Onetouch UltraStrips Use as Directed Fou r Times A Day Unknown 0 Zolpidem Ngmftfrj59fq Tablets Take One Tablet By Mouth AT Bedtime Unknown 0 Amphetamine-Dextroamp het ER10mg Caps ER 24HR Take One Capsule By Mouth Every Day Unknown 0 Fluticasone Esubxvwnlk64swi/Act Suspension Instill Two Sprays Into Each Nostril Once A Day Unknown 0 Diltiazem HCL ER Coated Xqlgk939yj Caps ER 24HR Take One Capsule By Mouth Every Day Unknown 0 BD32G Use One Needle Under The Skin Four Times A Day 200units Graham Rothman M.D. 0 Novolog Ntcaqsr501Gxar/ML Solution Pen-Inject Inject 7-10 Units Subcutaneously 3 Times A Day Dx: E11.9 45units E11.9 Graham Rothman M.D. 0 Amitriptyline HMV59dh Tablets Take One Tablet By Mouth AT Bedtime Unknown 0 Carbidopa-Udpnpkoc02- 100mg Tablets Take One Tablet By Mouth Three Times A Day Unknown 0 History Medications Levemir Qstdktq898Aopf/ML Solution Pen-Inject Inject 65 Units Subcutaneously Once A Day 60ml Graham Rothman M.D. 2024 - 05/02/2024 Gabapentin (Once-Daily)300mg Tablets Graham ames M.D. 10/22/2023 - 10/22/2023 Kychpeeduc271zr Capsules 1-3 capsules at bed time 90caps Graham Rothman M.D. 10/22/2023 - 01/26/2024 Basaglar Jrspegx222Bmqd/ML Solution Pen-Inject Inject 50 Units Subcutaneously Once A Day 90ml E11.9 Graham Rothman M.D. 08/23/2023 - 05/02/2024 Vital Signs Date Vital Result Comment 05/24/2024 1:29pm BP Systolic 138 mmHg BP Diastolic 80 mmHg Heart Rate 72 /min Height 69 inches 5'9 Weight 238.00 lb BMI (Body Mass Index) 35.1 kg/m2 Results Test Acquired Date Facility Test Result H/L [facility] Laboratory test finding 05/24/2024 Inhouse Hemoglobin A1c 5.7% Glucose Fingerstick 107 Laboratory test finding 01/26/2024 Inhouse Hemoglobin A1c 6.0% Glucose Fingerstick 112 Laboratory test finding 10/22/2023 Inhouse Hemoglobin A1c 6.1% Glucose Fingerstick 115 Laboratory test finding 06/23/2023 Inhouse Hemoglobin A1c 5.9% Glucose Fingerstick 128 Laboratory test finding 01/06/2023 Inhouse Hemoglobin A1c 8.0% Glucose Fingerstick 141 Laboratory test finding 12/26/2021 Inhouse Hemoglobin A1c 6.7% Glucose Fingerstick 169 Procedures Date Code Description Status 03/31/2022 NSHOWOFF No Show Office Visit Complet ed Medical Devices Description No Information Available Encounters Type Date Location Provider Dx Diagnosis Office Visit 05/24/2024 1:30p Main Office Graham Rothman M.D. E11.8 Type 2 diabetes mellitus with unspecified complications E11.40 Type 2 diabetes ender itus with diabetic neuropathy, unsp Assessments Date Code Description Provider 05/24/2024 E11.8 Complication due to diabetes mellitus Graham Rothman M.D. 05/24/2024 E11.40 Diabetic peripheral neuropat hy Graham Rothman M.D. Plan of Treatment Future Appointment(s):* 08/30/2024 2:30 pm - Graham Rothman M.D. at Main Office 01/26/2024 - Graham Rothman M.D.* E11.8 Complication due to diabetes mellitus * E11.40 Diabetic peripheral neuropathy * Functional Status Description No Information Available Mental Status Description No Information Available Referrals Description No Information Available
[2024-05-26 16:28] LABS: Amphetamine Screen Urine Not Detected (Not Detect); Barbiturates, Urine Not Detected (Not Detect); Benzodiazepines Screen Urine Not Detected (Not Detect); Buprenorphine Scr Not Detected (Not Detect); Cannabinoid Screen Urine Not Detected (Not Detect); Cocaine Screen Urine Not Detected (Not Detect); Fentanyl, urine Not Detected (Not Detect); Methadone Screen, Urine Not Detected (Not Detect); Opiate Screen Urine Not Detected (Not Detect); Oxycodone Screen Urine Not Detected (Not Detect); Phencyclidine Screen Urine Not Detected (Not Detect)
== END 2024-05-26 16:09 | disposition home or self-care (01) ==
LOC: HO.LNP 16:08
PROVIDERS: Visit Provider Nurse Practitioner Family
DX: G47.14 Hypersomnia due to medical condition (principal); F15.90 Other stimulant use, unspecified, uncomplicated; G20.A1 Parkinson's disease without dyskinesia, without mention of fluctuations
CPT/HCPCS: 80307

== ENCOUNTER 2024-08-31 14:59 | Outpatient (AMB) | payer MEDICARE, MEDICAID, SELFPAY ==
--- NOTE | 2024-08-31 15:19 | MHC.OFFVIS ---
Vital Signs 08/31/24 15:24 Height 5 ft 9 in BP 150/74 H Blood Pressure Location Lt brachial Position Sitting Pulse 64 Pulse Source Pulse Oximeter Pulse Oximetry (%) 96 Oxygen Delivery Method Room Air Intake Visit Reasons: Follow up 6mo Intake Note: Patient presents follow up Parkinson's/SANDRO mediation. 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 Accompanied by: Self / Same As Patient Allergies celecoxib [Celebrex] Allergy (Severe, Verified 08/31/24 15:19) face/eye swelling gabapentin Allergy (Intermediate, Verified 08/31/24 15:19) rash pregabalin Allergy (Intermediate, Verified 08/31/24 15:19) rash Medication List - Last Reconciled 08/31/24 by ADALBERTO Martin albuterol sulfate 90 mcg/actuation 2 inhalations inhalation Q6-8H blood sugar diagnostic (Chatterousuch Ultra Test strips) As directed carbidopa-levodopa 25-100 mg 1 tab PO TID 30 days dextroamphetamine-amphetamine 15 mg ER (Adderall XR) 15 mg PO QAM 30 days diltiazem HCl CD 360 mg PO DAILY doxazosin 8 mg PO BEDTIME fluticasone propionate 50 mcg/actuation 2 sprays intranasal DAILY gabapentin 300 mg PO BEDTIME insulin aspart U-100 15 units subcut TID lisinopril 40 mg PO DAILY magnesium oxide 400 mg PO BEDTIME 30 days pen needle, diabetic (BD Sandy 2nd Gen Pen Needle) As directed tirzepatide (Mounjaro) 5 mg subcut QWEEK ubrogepant (Ubrelvy) 50 - 100 mg (0.5 - 1 x 100 mg) PO ONCE PRN 30 days zolpidem 10 mg PO BEDTIME PRN 30 days HPI Comments Details: History of Present Illness The patient is a 69-year-old male presenting with a follow-up for Parkinson's disease and obstructive sleep apnea and hypersomnia, and migraine headache. Reports unresolved initial sleep study results. Sleep study demonstrated controlled apnea with CPAP therapy, however was not diagnostic for idiopathic hypersomnia or narcolepsy. Experiences Excessive daytime sleepiness, current dextroamphetamine therapy is poorly tolerated. Upon review, patient has history consistent with ADD stemming back to childhood.. Reports fluid in lungs and adrenal gland mass. Undergoing further endocrinological evaluation. Blood pressure spikes with physical activity. Decreased motivation, muscle pains, neuropathy, ?stabbing? sensation in limbs described. Muscle spasms, tension require management. Constipation, managed by fluids, occasional laxatives. Swallowing issues managed with exercises. Short-term memory issues; word-finding problems. Correlates headaches with other conditions. Activities of daily living (ADL's): Independent Instrumental activities of daily living (IADL's): Independent Swallowing difficulty: Reports occasional difficulty, exercises help Cough: Denies Drooling: Some Orthostatic lightheadedness: Reports increase in systolic blood pressure upon standing- associated with dextroamphetamine sulfate ER 15mg use, which he did not have a previous Adderall use. Constipation: Reports, managed with water and occasional MiraLAX Urinary symptoms: Reports, managed with increased Doxazosin. Tremor: Occasional, in pinkies Dyskinesia: None Stiffness: Reports constant stiffness and muscle spasms Musculoskeletal symptoms: Reports muscle pains and spasms Gait difficulties or changes: Denies Freezing episodes of gait: Denies Falls: Denies Mood difficulties or changes: Reports decreased motivation Hallucinations: Denies Memory difficulties or changes: Reports short-term memory issues Sleep difficulties: Reports trouble sleeping, sleep apnea well controlled with CPAP Exercise routine: Attempts gym a few times a week Socialization and cognitive activities: Works one day a week, does logic problems to stimulate brain Headache: Has bothersome migraine headache couple of times a week. Results - Labs: Mention of having upcoming blood work. - Tests: Sleep study shows obstructive sleep apnea controlled with CPAP. - Imagin07/20/2024, MRI abdomen without contrast at [facility]:IMPRESSION: 1. Extrahepatic biliary ductal dilatation with normal tapering and no obvious etiology likely due to prior cholecystectomy. 2. 3 cm lipid rich adenoma RIGHT adrenal gland. No further imaging follow up is required. Biochemical assays should be considered to determine functional status. 3. Miniscule volume of free fluid adjacent to the liver. Very small layering bilateral pleural effusions. Mild cardiomegaly suspected. 4. Degenerative changes in the lumbar spine likely causing central canal and bilateral lateral recess stenosis. 5. Tiny cystic lesion in the uncinate process of the pancreas measuring 0.2 cm. Per the 2017 ACR white paper for management of incidental pancreatic cysts, recommend single follow-up in two years. Research has shown that follow-up examinations can be safely performed without IV contrast (to decrease cost and shorten the exam), the patient called back for full MRI of the pancreas without and with IV contrast if the lesion or lesions of interest increase in size. This assumes the follow up examinations would be clinically indicated (i.e. patient agreeable to potential surgery and a surgical candidate). 02/18/2024, previous HPI: Pt reports he has had a significant weight loss- partly intentional and partly unintentional. He attributes this in apart d/t mami fleming. Pt did have Covid-19 in Jul. Pt also notes he stopped Belbuca as he has stopped seeing pain management. PCP retried him on Gabapentin 300mg as he had recurrence of burning/heat diabetic neuropathy pain in chad feet upon stopping belbuca. He had a listed allergy to Gabapentin - rash, but is tolerating the Gabapentin well now, and it does seem to be helping the foot pain. Pt's current PD medication regimen: CD-LD 25-100mg 1 tab tid. Did increase the CD-LD from 1 tab bid to 1 tab tid as he was having some wearing off- more difficulty walking. In regards to PD, has good days and bad days. ADL's: Ind Swallowing: Has been having intermittent swallowing difficulty w/ fluids and less often solids. Notes he cannot take a drink standing up. Sometimes it will feel like solids just sit in the back of his trhoat. 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 Drooling: Some- not as much Orthostatic lightheadedness: Occasionally, but does this slowly to avoid this. Constipation: More recently increased constipation- notes his metformin dose was decreased. Metamucil helps. Urinary symptoms: Was having some urinary frequency/urgency/feeling of incomplete voiding- helped w/ stopping carbonated bevergaes and increasing doxazosin. Gait changes: can feel unsteady after standing. CD-LD increase has helped him to walk better. Trying to focus on posture when walking. Fall: none Freezing: Rarely- if standing up from standing. Cramps/Spasms: Mostly in his feet and some in his hands. Sometimes arm just moves. Stiffness: Stable Tremor: Not too bad- but shakier after taking the destroamphetamine sulfate ER 15mg (also makes his BP rise, causes jitteriness, and causes headache). Mood: Has been a lot better. Not becoming as anxious. Not crying as much. He has started seeing a therapist- now every 4 months. Hallucinations: Seeing more colors than shadows now Memory: LTM is ok. Finds STM is a bit worse- forgets what he may do, or have word finding difficulty Sleep: Sleeping 6 hrs per night regardless of what time he goes to sleep. Not taking naps. Adderal was changed to dextroamphetamine sulfate ER per insurance formulary. Using the dextroamphetamine sulfate ER 15mg prn only about once a week as it causes his BP rise, causes jitteriness, and causes headache. He notes that the Adderal was much more effective and better tolerated. He is using less Ambien- may take half tab a night. Exercise: Exercising more. [facility] Medical History (Updated 08/31/24 @ 16:07 by ADALBERTO Martin) Parkinson disease Bipolar 2 disorder Surgical History S/P laser cataract surgery History of cholecystectomy History of knee replacement H/O neck surgery Family History Father Heart attack Mother Congestive heart failure Social History Household Members: Significant Other Alcohol intake: never Patient Tobacco Use Status: Former Tobacco user Physical Exam Vital Signs: Last Vital Signs Pulse 64 08/31/24 15:24 BP 150/74 H 08/31/24 15:24 Pulse Ox 96 08/31/24 15:24 Oxygen Delivery Method Room Air 08/31/24 15:24 Const General: cooperative and no acute distress Resp Effort & Inspection: normal respiratory effort and able to speak in complete sentences Neuro Other: General: A&O x's 3 Expression:? Mild decreased expression blink Voice:? Soft voice Tremor:? No tremor today Dyskinesia: None FFM: mildly decreased Foottaps: mildly decreased, more so on left Gait:? Stands up today, slight stoop, decreased arm swing, stride ok, steady gait Psych:? Pleasant affect Assessment & Plan Assessment & Plan (1) Parkinson's disease without dyskinesia: Comment: Positive JOELLEN scan, tremor, stiffness Code(s): G20.A1 - Parkinson's disease without dyskinesia, without mention of fluctuations Category: Medical (2) Obstructive sleep apnea (adult) (pediatric): Code(s): G47.33 - Obstructive sleep apnea (adult) (pediatric) Category: Medical (3) Hypersomnia due to medical condition: Comment: d/t Parkinson's and SANDRO. Code(s): G47.14 - Hypersomnia due to medical condition Category: Medical Plan ?Discussion Notes I discussed the management options related to controlling sleep apnea and the benefits of continued CPAP therapy. Discussed strategies to optimize hypersomnia symptoms in setting of ADD. We will also optimize acute migraine treatment. We reviewed the significance of consistent blood pressure monitoring and the associated risks. discussed importance of following up with PCP on recent abdominal MRI findings. Addressed strategies for memory improvement and muscle tension relief, emphasizing the importance of exercise and physical activity in managing symptoms. I provided anticipatory guidance regarding the importance of follow-up with specialists, routine health monitoring, and maintaining all prescheduled diagnostic appointments. Patient was informed and verbally consented to the use of an ambient scribe for clinic note documentation during this visit. Plan and Patient Instructions For PD, hypersomnia, SANDRO: Continue carbidopa levodopa 25-100mg 1 tab TID Continue speech therapy exercises. Continue CPAP. Stop dextroamphetamine sulfate 15mg ER- not tolerated. Resume Adderall at 15mg ER q.a.m. prn for hypersomnia and ADD treatment. Check labs for common etiologies of hypersomnia/anxiety/poor motivation. Pt may benefit from reading/listening to Say [place] to Insomnia by Dr Jordin Valencia or similar CBTi resources. Future considerations- increasing Adderall, trying Sunosi. (would need to ensure HTN well-controlled).? For anxiety and decreased motivation in setting of h/o bipolar d/o: Again check labs for common etiologies. Continue psychotherapy Pt previously had psych consult w/ Dr Mabry's. Pt has stopped Trileptal and lamotrigine. Monitor mood. For migraine headache: For migraine prevention: Continue Mag for migraine prevention. Continue diltiazem-order primarily for HTN. Previous migraine prevention headache tx trials: Amitriptyline- caused am drowsiness. Nortriptyline- not tolerated. For acute migraine treatment: Trial Ubrogepant (Ubrelvy) 100mg tab, 1/2 - 1 tab (50-100mg) at onset of headache, may repeat in 2 hours. Max of 2 tabs (200mg) per 24 hours. May adjunct with OTC Tylenol 650 -1000 mg q 4-6 hours as needed. Potential adverse effects, include but are not limited to fatigue, nausea, dry mouth, constipation Acute migraine treatment contraindications: All triptans and DHE due to uncontrolled hypertension. ? will f/u in 6 months or sooner prn. Orders: Orders Ferritin 08/31/24 ADALBERTO Martin G20.A1 - Parkinson's disease without dyskinesia, without mention of fluctuations, D64.9 - Anemia, unspecified, F41.9 - Anxiety disorder, unspecified, R53.83 - Other fatigue Methylmalonic Acid 08/31/24 Pat Toney, ADALBERTO G20.A1 - Parkinson's disease without dyskinesia, without mention of fluctuations, D64.9 - Anemia, unspecified, F41.9 - Anxiety disorder, unspecified, R53.83 - Other fatigue Vitamin B12 and Folate 08/31/24 Pat Toney, ADALBERTO G20.A1 - Parkinson's disease without dyskinesia, without mention of fluctuations, D64.9 - Anemia, unspecified, F41.9 - Anxiety disorder, unspecified, R53.83 - Other fatigue Vitamin D 25-OH (D2 and D3) 08/31/24 Pat Toney, ADALBERTO G20.A1 - Parkinson's disease without dyskinesia, without mention of fluctuations, D64.9 - Anemia, unspecified, F41.9 - Anxiety disorder, unspecified, R53.83 - Other fatigue TSH reflex Free T4 08/31/24 ADALBERTO Martin G20.A1 - Parkinson's disease without dyskinesia, without mention of fluctuations, D64.9 - Anemia, unspecified, F41.9 - Anxiety disorder, unspecified, R53.83 - Other fatigue Folate 08/31/24 Pat Toney, ADALBERTO G20.A1 - Parkinson's disease without dyskinesia, without mention of fluctuations, D64.9 - Anemia, unspecified, F41.9 - Anxiety disorder, unspecified, R53.83 - Other fatigue Magnesium 08/31/24 Pat Toney, ADALBERTO G20.A1 - Parkinson's disease without dyskinesia, without mention of fluctuations, D64.9 - Anemia, unspecified, F41.9 - Anxiety disorder, unspecified, R53.83 - Other fatigue Homocysteine 08/31/24 ADALBERTO Martin G20.A1 - Parkinson's disease without dyskinesia, without mention of fluctuations, D64.9 - Anemia, unspecified, F41.9 - Anxiety disorder, unspecified, R53.83 - Other fatigue Vitamin B6 08/31/24 ADALBERTO Martin G20.A1 - Parkinson's disease without dyskinesia, without mention of fluctuations, D64.9 - Anemia, unspecified, F41.9 - Anxiety disorder, unspecified, R53.83 - Other fatigue Complete Blood Count Auto Diff 08/31/24 ADALBERTO Martin G20.A1 - Parkinson's disease without dyskinesia, without mention of fluctuations, D64.9 - Anemia, unspecified, F41.9 - Anxiety disorder, unspecified, R53.83 - Other fatigue Comprehensive Met. Panel 08/31/24 ADALBERTO Martin G20.A1 - Parkinson's disease without dyskinesia, without mention of fluctuations, D64.9 - Anemia, unspecified, F41.9 - Anxiety disorder, unspecified, R53.83 - Other fatigue Vitamin B1 08/31/24 ADALBERTO Martin G20.A1 - Parkinson's disease without dyskinesia, without mention of fluctuations, D64.9 - Anemia, unspecified, F41.9 - Anxiety disorder, unspecified, R53.83 - Other fatigue Medications: New ubrogepant (Ubrelvy) take at onset of migraine, may repeat in 2hrs (may take w/ Ibuprofen) 50 - 100 mg (0.5 - 1 x 100 mg) PO ONCE PRN 16 tabs 3RF migraine headache 30 days ADALBERTO Martin Refilled carbidopa-levodopa 25-100 mg 1 tab PO TID 90 tabs 6RF 30 days Palma Ochoa MD Discontinued dextroamphetamine sulfate ER Partial Fill upon patient request. Discontinued Reason: Doctor's Order 15 mg PO DAILY 30 days 30 caps 0RF Coding Level of Care Code Est Pt Level 4 (14762) Complex EM visit Add On G2211 Diagnoses Parkinson's disease without dyskinesia G20.A1 Obstructive sleep apnea (adult) (pediatric) G47.33 Hypersomnia due to medical condition G47.14
[2024-08-31 15:24] VITALS: BP 150/74; PULSE 64; O2SAT 96
== END 2024-08-31 16:14 | disposition home or self-care (01) ==
LOC: HO.HSMS 14:59
PROVIDERS: PCP Family Medicine; Visit Provider Nurse Practitioner Family
DX: G20.A1 Parkinson's disease without dyskinesia, without mention of fluctuations (principal); G47.33 Obstructive sleep apnea (adult) (pediatric); G47.14 Hypersomnia due to medical condition
CPT/HCPCS: 99214; G2211

== ENCOUNTER → 2024-08-31 14:59 | Outpatient (BNVA) | payer MEDICARE, MEDICAID, SELFPAY | PROVIDERS: PCP Family Medicine; Visit Provider Nurse Practitioner Family | DX: G20.A1 Parkinson's disease without dyskinesia, without mention of fluctuations (principal); G47.33 Obstructive sleep apnea (adult) (pediatric); G47.14 Hypersomnia due to medical condition | CPT/HCPCS: 99212 ==

== ENCOUNTER 2025-02-09 13:03 | Outpatient (AMB) | payer MEDICARE, MEDICAID, SELFPAY ==
[2025-02-09 13:05] VITALS: BP 118/62; PULSE 58; TEMP 37.1; O2SAT 97; BMI 33.4
--- NOTE | 2025-02-09 13:05 | MHC.OFFVIS ---
Vital Signs 02/09/25 13:05 Height 5 ft 9 in Weight 102.512 kg BMI 33.4 BP 118/62 Blood Pressure Location Lt brachial Position Sitting Pulse 58 Pulse Source Pulse Oximeter Temp 98.8 F Pulse Oximetry (%) 97 Oxygen Delivery Method Room Air Intake Visit Reasons: New Patient Intake Note: Patient is a new patient, needs primary care provider. Accompanied by: Self / Same As Patient Allergies celecoxib (Celebrex) Allergy (Severe, Verified 08/31/24 15:19) face/eye swelling pregabalin Allergy (Intermediate, Verified 08/31/24 15:19) rash Medication List - Last Reconciled 02/09/25 by JIN Holliday albuterol sulfate 90 mcg/actuation 2 inhalations inhalation Q6-8H blood sugar diagnostic (Supersonicuch Ultra Test strips) As directed carbidopa-levodopa 25-100 mg 1 tab PO TID 30 days CPAP (CPAP Machine/Device) As directed dextroamphetamine-amphetamine 15 mg 15 mg PO BID 30 days dextroamphetamine-amphetamine 15 mg ER (Adderall XR) 15 mg PO QAM 30 days diltiazem HCl CD 360 mg PO DAILY doxazosin 8 mg PO BEDTIME empagliflozin (Jardiance) 10 mg PO DAILY fluticasone propionate 50 mcg/actuation 2 sprays intranasal DAILY gabapentin 300 mg PO BEDTIME lisinopril 40 mg PO DAILY magnesium oxide 400 mg PO BEDTIME 30 days pen needle, diabetic (BD Sandy 2nd Gen Pen Needle) As directed rimegepant (Nurtec ODT) 75 mg PO ONCE PRN 30 days MDD 1 tab spironolactone 25 mg PO DAILY tirzepatide (Mounjaro) 7.5 mg (0.5 mL) subcut QWEEK zolpidem 10 mg PO BEDTIME PRN 30 days HPI Comments Details: 69-year-old male with history of Parkinson's disease, ADHD, SANDRO, hypertension, BPH, migraines, type 2 diabetes, bipolar disorder presenting to the office today for management of chronic conditions and to establish care. Type 2 diabetes-Last A1c 6.2%. Following with Dr. Phan at [facility]. On Jardiance, Mounjaro. Compliant with diet overall.Uses CGM, glucose typically 120-135. Eye exams UTD. Hypertension-blood pressure in the office today 118/62. On diltiazem 360 mg CD, lisinopril 40 mg daily, spironolactone 25 mg daily. Bipolar disorder/ADHD-on Adderall, zolpidem. PCP managing SANDRO-on CPAP Migraine/Parkinson's disease-following with [facility]. On Sinemet, Nurtec, magnesium. Symptoms include shuffling gait, memory, expressive aphasia Obesity-BMI 33.4. On Mounjaro. Has lost 80 pounds since starting Mild intermittent asthma- Dr. Pham. On albuterol prn CKD /microalbuminuria- Dr. Currie Ascending thoracic aneurysm/CHF?- [facility] cardiology. Annual echos. No chest pain Concerns: Neuropathy bilateral feet- on gabapenin. Slightly worse overall controlled Health maintenance: Last colonscopy last year at [facility], 10 year followup ROS: General: No fevers, malaise, unintentional weight loss HEENT: No blurred vision, diplopia. No sore throat, nasal congestion, rhinorrhea, sinus pain, ear pain Cardiovascular: No chest pain, palpitations, or leg edema Respiratory: No shortness of breath, wheezing, cough GI: No abdominal pain, nausea, vomiting, diarrhea, constipation, melena, hematochezia : No dysuria, hematuria, increased urinary frequency, decreased urinary output MSK: No myalgia, back pain Neuro: No headaches, weakness, paresthesias Skin: No rashes or lesions EXAM: Constitutional - Awake and Alert, No apparent distress Eyes - PERRL Cardiovascular - S1S2, RRR, No edema Respiratory - Normal lung expansion, Normal respiratory effort, No respiratory distress, CTA bilaterally Extremities - no calf tenderness bilaterally, no swelling Skin - Warm/Dry Neurological - Alert & oriented x3 Psychological - Appropriate affect [facility] Medical History (Updated 02/09/25 @ 13:41 by JIN Holliday) Hypertension Thoracic ascending aortic aneurysm Type 2 diabetes mellitus Adrenal gland cyst Parkinson disease Bipolar 2 disorder Surgical History S/P laser cataract surgery History of cholecystectomy History of knee replacement H/O neck surgery Family History Father Heart attack Mother Congestive heart failure Social History Household Members: Significant Other Alcohol intake: never Patient Tobacco Use Status: Former Tobacco user Physical Exam Vital Signs: Last Vital Signs Temp 98.8 F 02/09/25 13:05 Pulse 58 02/09/25 13:05 BP 118/62 02/09/25 13:05 Pulse Ox 97 02/09/25 13:05 Oxygen Delivery Method Room Air 02/09/25 13:05 BMI result Body Mass Index 33.4 Assessment & Plan Assessment & Plan (1) Thoracic ascending aortic aneurysm: Code(s): I71.21 - Aneurysm of the ascending aorta, without rupture Category: Medical Plan: Stable. Obtain most recent echo/cardiology notes (2) Bipolar disorder, unspecified: Code(s): F31.9 - Bipolar disorder, unspecified Category: Medical Plan: Stable. We will continue Adderall, zolpidem (3) Type 2 diabetes mellitus: Code(s): E11.9 - Type 2 diabetes mellitus without complications Category: Medical Plan: Controlled with most recent A1c 6.2%. Continue Jigna. Records to be obtained from [facility] endocrinology. Referred for diabetic eye exam (4) Parkinson's disease without dyskinesia: Comment: Positive JOELLEN scan, tremor, stiffness Code(s): G20.A1 - Parkinson's disease without dyskinesia, without mention of fluctuations Category: Medical Plan: Symptoms well managed. Continue following with Neurology. Continue SineValerie muhammadtelavern (5) Hypertension: Code(s): I10 - Essential (primary) hypertension Category: Medical Plan: Controlled. Continue lisinopril, spironolactone, diltiazem. Plan Follow-up in the office in 4-6 months, labs to be completed prior to visit Orders: Orders Basic Metabolic Panel 4 Months D64.9 - Anemia, unspecified, E11.9 - Type 2 diabetes mellitus without complications, F31.9 - Bipolar disorder, unspecified, I10 - Essential (primary) hypertension Hemoglobin A1c 4 Months D64.9 - Anemia, unspecified, E11.9 - Type 2 diabetes mellitus without complications, F31.9 - Bipolar disorder, unspecified, I10 - Essential (primary) hypertension Lipid Panel 4 Months D64.9 - Anemia, unspecified, E11.9 - Type 2 diabetes mellitus without complications, F31.9 - Bipolar disorder, unspecified, I10 - Essential (primary) hypertension Liver Panel 4 Months D64.9 - Anemia, unspecified, E11.9 - Type 2 diabetes mellitus without complications, F31.9 - Bipolar disorder, unspecified, I10 - Essential (primary) hypertension Prostate Specific Antigen 4 Months D64.9 - Anemia, unspecified, E11.9 - Type 2 diabetes mellitus without complications, F31.9 - Bipolar disorder, unspecified, I10 - Essential (primary) hypertension Complete Blood Count Auto Diff 4 Months D64.9 - Anemia, unspecified, E11.9 - Type 2 diabetes mellitus without complications, F31.9 - Bipolar disorder, unspecified, I10 - Essential (primary) hypertension Referrals Ophthalmology Referral E11.9 - Type 2 diabetes mellitus without complications Medications: New tirzepatide (Mounjaro) 7.5 mg (0.5 mL) subcut QWEEK 2 mL 0RF Coding Level of Care Code New Pt Level 4 (30598) Complex EM visit Add On G2211 Diagnoses Thoracic ascending aortic aneurysm I71.21 Bipolar disorder, unspecified F31.9 Type 2 diabetes mellitus E11.9 Parkinson's disease without dyskinesia G20.A1 Hypertension I10 Additional Codes BEREKET-7 Assessment Billing - BEREKET-7 Assessment Tool: BEREKET-7 Assessment 02194 ([id number]) PHQ-9 - 48071 - PHQ-9 Billing: Yes ([id number]) PHQ-9 Over the last 2 weeks, how often have you been bothered by any of the following problems? 1. Little interest or pleasure in doing things: not at all 2. Feeling down, depressed, or hopeless: not at all 3. Trouble falling or staying asleep, or sleeping too much: several days 4. Feeling tired or having little energy: several days 5. Poor appetite or overeating: several days 6. Feeling bad about yourself - or that you are a failure or have let yourself or your family down: not at all 7. Trouble concentrating on things, such as reading the newspaper or watching television: not at all 8. Moving or speaking so slowly that other people could have noticed. Or the opposite - being so fidgety or restless that you have been moving around a lot more than usual: not at all 9. Thoughts that you would be better off or of hurting yourself in some way: not at all Total score: 3 Depression Screening Interpretation: Negative Depression Screening Done: Yes 00216 - PHQ-9 Billing: Yes Source: Developed by Drs. Joe Coppola, Jose Manuel Singh and colleagues, with an educational maurice from [employer]. BEREKET-7 AMB Questionnaire BEREKET-7 Date BEREKET - 7 assessed: 02/09/25 Feeling nervous, anxious, or on edge: 0 = Not at all Not being able to stop or control worryin = Not at all Worrying too much about different things: 0 = Not at all Trouble relaxin = Several days Being so restless that it is hard to sit still: 0 = Not at all Becoming easily annoyed or irritable: 0 = Not at all Feeling afraid as if something awful might happen: 0 = Not at all Total BEREKET-7 score (0-4 normal; 5-9 mild; 10-14 moderate; 15-21 severe): 1 Source: Developed by Drs. Joe Coppola, Jose Manuel Singh and colleagues, with an educational maurice from [employer]. BEREKET-7 Assessment Billing BEREKET-7 Assessment Tool: BEREKET-7 Assessment 48907 Fall Risk Assessment Fall Risk Assessment Fall risk assessment: No Falls in past year AUDIT C Alcohol Use Questionnaire (AUDIT-C) 1. How often do you have a drink containing alcohol?: Never 3. How often do you have six or more drinks on one occasion?: Never Total Score: 0 Thrive Questionnaire Date Thrive assessed: 02/09/25 I am a: Patient What is your living situation today?: I have a steady place to live Within the past 12 months, did the food you bought not last and you didn't have the money to get more?: Never true Within the past 12 months, did you worry whether your food would run out before you got money to buy more?: Never true Do you have trouble paying for medicines?: No Do you have trouble getting transportation to medical appointments?: No Do you have trouble paying your heating and electricity bill?: No Do you have trouble taking care of your child, family member or friend?: No Do you have trouble with day-to-day activities such as bathing, preparing meals, shopping, managing finances, etc.?: No Are you currently unemployed and looking for a job?: No Are you interested in more education?: Yes Currently or been in a relationship where the following occur: No concerns reported THRIVE Score: 0
--- OUTSIDE RECORDS SUMMARY | 2025-02-09 13:14 | XMS_ITS | Clinical Summary ---
Author Organization [facility] Address [address] [facility] [address] [place] [address] Phone Care Team Providers Care Hat Ironer Name Role Phone Owens, Jason Guru SNEED Primary Care Provider [phone] Allergies Active Allergy Reactions Criticality Noted Date Comments Celecoxib Other (see comments) 07/11/2020 Gabapentin 07/05/2021 Pregabalin 07/05/2021 Medications albuterol HFA (PROVENTIL HFA;VENTOLIN HFA) 108 (90 Base) MCG/ACT inhaler by Other route Activ e fluticasone (FLONASE) 50 MCG/ACT nasal spray [place] as directed Active insulin aspart (NovoLOG) 100 UNIT/ML injection Active insulin detemir (Levemir) 100 UNIT/ML injection as directed Duration: 30 Active metFORMIN (FORTAMET) 1000 MG 24 hr tablet Take 1 tablet by mouth 2 (two) times a day Active Belbuca [address] ONE FILM BUCCALLY EVERY 12 HOURS FOR CHRONIC PAIN 1 Active magnesium oxide (MAG-OX) 400 (241.3 Mg) MG tablet Take 400 mg by mouth every night 1 Active Riboflavin (Vitamin B-2) 100 MG tablet Take 2 tablets by mouth twice a day 1 Active Dulaglutide 0.75 MG/0.5ML solution pen-injector Inject under the skin Active carbidopa-levodo pa (SINEMET) 25-100 MG per tablet Take 1 tablet by mouth in the morning and 1 tablet in the evening and 1 tablet before bedtime. Active AMITRIPTYLINE HCL PO Take 10 mg by mouth Active cyclobenzaprine (FLEXERIL) 5 MG tablet TAKE ONE TABLET BY MOUTH THREE TIMES A DAY FOR 7 DAYS 4 Active Arnuity Ellipta 100 MCG/ACT aerosol powder INHALE ONE PUFF BY MOUTH EVERY 24 HOURS 4 Active fluticasone HFA (FLOVENT HFA) 110 MCG/ACT inhaler Inhale 2 puffs in the morning and 2 puffs in the evening. 4 Active Basaglar KwikPen 100 UNIT/ML injection 4 Active zolpidem (AMBIEN) 10 MG tablet 2 Active amphetamine-dext roamphetamine XR (ADDERALL XR) 15 MG 24 hr capsule TAKE ONE CAPSULE BY MOUTH EVERY DAY IN THE MORNING NEEDED FOR DROWSINESS 4 Active doxazosin (CARDURA) 8 MG tablet 4 Active dilTIAZem CD (CARDIZEM CD) 360 MG 24 hr capsuleIndicatio ns:Chronic kidney disease, stage 2 (mild),Type 2 diabetes mellitus with diabetic nephropathy (HCC),Hypertensi on TAKE ONE CAPSULE BY MOUTH EVERY DAY 30 capsule 11 5 Active spironolactone (ALDACTONE) 25 MG tablet Take 2 tablets (50 mg total) by mouth 1 (one) time each day 180 tablet 3 5 Active Insulin Glargine-yfgn 100 UNIT/ML solution pen-injector INJECT 25 UNITS UNDER THE SKIN ONCE A DAY AT NIGHT 5 Active Mounjaro 7.5 MG/0.5ML solution auto-injector Inject 0.5 mL under the skin 1 (one) time per week Active gabapentin (NEURONTIN) 300 MG capsule Take by mouth 4 Active lisinopril 40 MG tablet TAKE ONE TABLET BY MOUTH EVERY DAY 90 tablet 5 Active Active Problems Problem Noted Date Diagnosed Date Anemia 09/29/2023 Chronic obstructive pulmonary disease 09/29/2023 Fatty liver 09/29/2023 Morbid obesity 09/29/2023 Severe obesity 09/29/2023 Osteoarthritis 09/29/2023 Restrictive lung disease 09/29/2023 Right lower quadrant pain 09/29/2023 Thyroid nodule 09/29/2023 Overview (09/29/2023): Dr. Rothman Asthma 09/29/2023 Chronic viral hepatitis C 12/26/2021 Parkinson's disease 12/26/2021 Ascending aorta dilatation 07/07/2021 Patient encounter status 07/07/2021 Hyperlipidemia 07/05/2021 Hypertension 07/05/2021 Type 2 diabetes mellitus 07/05/2021 Chronic kidney disease stage 1 07/11/2020 Hypertensive chronic kidney disease, unspecified, with chronic kidney disease stage I through stage IV, or unspecified 07/11/2020 Hypokalemia 07/11/2020 Proteinuria 07/11/2020 Renal disorder due to type 2 diabetes mellitus 0 07/11/2020 Encounters Date Type Department Care Team Description 01/08/2025 Refill [facility] [address] [place] [address] Ravindra Currie MD 01/05/2025 Refill [facility] [address] [place] [address] Ravindra Currie MD from Last 3 Months Immunizations Immunization Administration Dates Next Due Influenza Split High Dose Pr eservative Free IM 03/07/2019,03/07/2014 Influenza Whole 04/23/2020,03/03/2019 Influenza, Quadrivalent, Preservative Free 04/23 Influenza, Unspecified 03/04/2019,03/08/2017 Moderna SARS-COV-2 05/07/2021,08/29/2020, 021 Pneumococcal Conjugate 13-Valent 03/08/2017 Pneumococcal Polysaccharide 08/31/2009 Shingrix 12/13/2017,08/30/2017 Family History Medical History Relation Comments Dementia Mother Heart disease Mother Hypertension Mother Relation Status Comments Father Mother Social History Tobacco Use Types Packs/Day Years Used Date Smoking Tobacco: Former Smokeless Tobacco: Never Tobacco Cessation:Counseling Given: No Alcohol Use Standard Drinks/Week Comments Yes 0 (1 standard drink = 0.6 oz pure alcohol) Alcoholic Drinks/day: Occasional social drink Sex and Gender Information Value Date Recorded Sex Assigned at Not on file Legal Sex Male 4:41 PM EST Gender Identity Not on file Sexual Orientation Not on file Last Filed Vital Signs Vital Sign Reading Time Taken Comments Blood Pressure 119/65 10/11/2024 1:29 PM EDT Pulse 71 10/11/2024 1:29 PM EDT Temperature - - Respiratory Rate - - Oxygen Saturation 97% 10/06/2021 4:20 PM EDT Inhaled Oxygen Concentration - - Weight 110 kg (242 lb) 09/29/2023 3:45 PM EDT Height 175.3 cm (5' 9 ) 10/06/2021 4:20 PM EDT Body Mass Index 35.74 10/06/2021 4:20 PM EDT Plan of Treatment Upcoming Encounters Date Type Department Care Team (Late st Contact Info) Description 10/10/2025 2:45 PM EDT [facility] [address] [place] [address] Ravindra Currie MD [address] [address] Health Maintenance Due Date Last Done Comments Colorectal Cancer Screening: Annual FOBT 2006 Colorectal Cancer Screening: Colonoscopy 2006 Colorectal Cancer Screening: Sigmoidoscopy 2006 Hepatitis B Vaccine (1 of 3 - Risk 3-dose series) 2017 Pneumococcal Vaccine: 50+ Ye ars (3 of 3 - PCV20 or PCV21) 05/03/2017 03/08/2017, 08/31/2009 Diabetes: Hemoglobin A1C 07/07/2020 Diabetes: Ophthalmology Exam 07/07/2020 Diabetes: Pedal Pulse Checked 07/07/2020 Diabetes: Sensory Foot Exam 07/07/2020 Diabetes: Visual Foot Exam 07/07/2020 Influenza Vaccine (#1) 2025 , 04/23/2020, 03/07/2019, Additional history exists Pneumococcal Vaccine: Peds ( 0 to 5 Years) and At-Risk Patients (6 to 49 Years) Discontinued 03/08/2017, 08/31/2009 Insurance Medicare Medicaid [place] Medicare Medicaid [place] Care Teams Hat Ironer Relationship Specialty Start Date End Date Jason Owens DO [address] [place] [address] PCP - General Yarding And Folding Machine Operator 06/17/20
--- OUTSIDE RECORDS SUMMARY | 2025-02-09 13:14 | XMS_ITS | Encounter Summary ---
Author Organization [facility] Address [address] [facility] [address] [place] [address] Phone Care Team Providers Care Roofing Machine Operator Name Role Phone aJson Owens Primary Care Provider [phone] Reason for Visit * Reason Comments Med Refill Encounter Details Date Type Department Care Team (Late Contact Info) Description 11/07/2020 Refill [facility] [address] [facility] [address] [place] [phone] Ravindra Currie MD [address] [address] Social History Tobacco Use Types Packs/Day Years Used Date Smoking Tobacco: Former Alcohol Use Standard Drinks/Week Comments Yes 0 (1 standard drink = 0.6 oz pure alcohol) Alcoholic Drinks/day: Occasional social drink Sex and Gender Information Value Date Recorded Sex Assigned at Not on file Legal Sex Male 4:41 PM EST Gender Identity Not on file Sexual Orientation Not on file documented as of this encounter Plan of Treatment Upcoming Encounters Date Type Department Care Team (Late st Contact Info) Description 10/10/2025 2:45 PM EDT Office Visit [facility] [address] [place] [phone] Ravindra Currie MD [address] [address] documented as of this encounter Visit Diagnoses Not on filedocumented in this encounter Care Teams Roofing Machine Operator Relationship Specialty Start Date End Date Jason Owens DO [address] [place] [address] PCP - General Fabric Worker 06/17/20 documented as of this encounter
--- OUTSIDE RECORDS SUMMARY | 2025-02-09 13:14 | XMS_ITS | Continuity of Care Document ---
Author Organization [facility] [address] [place] [address] Phone [phone] Problems Active Problems Provider Date Type 2 [...] Social History Type Date Description Comments Sex Male Sex Unknown Lives With Girlfriend Work Status Disabled ETOH Use Denies alcohol use Tobacco Use Start: Unknown End: Unknown Patient is a former smoker Allergies and adverse reactions Active Allergies Criticality Reaction Severity Comments Date Celebrex Unable to assess criticality 12/26/2021 Lyrica Unable to assess criticality 12/26/2021 Neurontin Unable to assess criticality 12/26/2021 Medications Active Medications SIG Qnty Indications Order ing Provider Date Cuhzwykfy90jb Tablets 1 tablet by mouth every day 90tabs Graham Rothman M.D. 5 Wtppcdoswpcvg9fd Tablets 1 tabs by mouth at 11pm 1tabs Graham Rothman M.D. 5 Mounjaro7.5mg/0.5ML Solution Auto-Inject Inject 0.5 ML Every Week 6ml E11.9 Graham Rothman M.D. 4 Zlmnjxjqys964oh Capsules Take One Capsule By Mouth Daily AT Bedtime 90caps Graham Rothman M.D. 4 Freestyle Elsie 3/Sensor/Glucose Monitoring Zotbsq3Mxxsjw Misc as directed 3units Graham Rothman M.D. 4 Careone Unifine Pen 32G X4mm Use One Needle Subcutaneously Four Times A Day 200units E11.9 Graham Rothman M.D. 3 Freestyle Elsie 2/Sensor/Flash Glucose Monitoring Bainsi8Vajjda Misc 1 sensor to skin every fourteen days as directed 6units Graham Rothman M.D. 3 Onetouch UltraStrips Use as Directed Fou r Times A Day DX: E11.9 400units E11.9 Graham Rothman M.D. 2 Amphetamine-Dextroamp het ER10mg Caps ER 24HR Take One Capsule By Mouth Every Day Unknown 0 Methylphenidate FHG75vr Tablets Take One Tablet By Mouth Every Afternoon as Needed For Drowsiness Unknown 0 Doxazosin Pnjmpifl8zm Tablets Take One Tablet By Mouth Every Day AT Bedtime Unknown 0 Azoknekfwq78eu Tablets Take One Tablet By Mouth Every Day Unknown 0 Ventolin ULE150(90Base) mcg/Act Aerosol Inhale Two Puffs By Mouth Four Times A Day as Needed For Shortness Of Breath. Unknown 0 Magnesium Gptak653(240Mg) mg Tablets Take One Tablet By Mouth AT Bedtime Unknown 0 Onetouch UltraStrips Use as Directed Fou r Times A Day Unknown 0 Slgyakcwlstfum48jf Tablets Take Two Tablets By Mouth Every Day Unknown 0 Zolpidem Vddkscmt92vr Tablets Take One Tablet By Mouth AT Bedtime Unknown 0 Fluticasone Znvsjaswvp19pya/Act Suspension Instill Two Sprays Into Each Nostril Once A Day Unknown 0 Diltiazem HCL ER Coated Dbqqq063rf Caps ER 24HR Take One Capsule By Mouth Every Day Unknown 0 BD32G Use One Needle Under The Skin Four Times A Day 200units Graham Rothman M.D. 0 Novolog Vkfpbch219Zfah/ML Solution Pen-Inject Inject 7-10 Units Subcutaneously 3 Times A Day Dx: E11.9 45units E11.9 Graham Rothman M.D. 0 Carbidopa-Xyhlnljb26- 100mg Tablets Take One Tablet By Mouth Three Times A Day Unknown 0 History Medications Insulin Glargine-Xiul830Gngr/ML Solution Pen-Inject Inject 25 Units Under The Skin Once A Day AT Night 15units Graham Rothman M.D. 08/30/2024 - 01/31/2025 Metformin LBN349dp Tablets Take Two Tabl ets By Mouth Twice A Day 360tabs Graham Rothman M.D. 08/10/2024 - 08/30/2024 Semglee (Yfgn)100Unit/ML Solution Pen-Inject inject 45 units subcutaneously once a day at night dx: e11.9 15ml Graham Rothman M.D. 05/02/2024 - 08/30/2024 Levemir Zvdncbv820Micb/ML Solution Pen-Inject Inject 65 Units Subcutaneously Once A Day 60ml Graham Rothman M.D. 2024 - 05/02/2024 Vital Signs Date Vital Result Comment 01/31/2025 1:08pm BP Systolic 130 mmHg BP Diastolic 70 mmHg Heart Rate 72 /min Height 69 inches 5'9 Weight 229.50 lb BMI (Body Mass Index) 33.9 kg/m2 Results Test Acquired Date Facility Test Result H/L Range N ote Aldosterone LC/MS, Serum 01/31/2025 [facility] Aldosterone LC/MS, Serum <pending> Cortisol 01/31/2025 [facility] Cortisol <pending> Hemoglobin A1c 01/31/2025 Inhouse Hemoglobin A1c 6.2% Glucose Fingerstick 01/31/2025 Inhouse Glucose Fingerstick 161 Renin Activity Plasma 01/31/2025 [facility] Renin Activity Plasma <pending> Metanephrines Frac., PL, Free 09/01/2024 [facility] Normetanephrine, Pl 46.2 pg/mL 0.0-285.2 1 Metanephrine, Pl <25.0 pg/mL 0.0 -88.0 Renin Activity, Plasma 09/01/2024 [facility] Renin Activity, Plasma 0.602 ng/mL/hr 0.167-5.3 80 Hemoglobin A1c 08/30/2024 Inhouse Hemoglobin A1c 6.0% Glucose Fingerstick 08/30/2024 Inhouse Glucose Fingerstick 120 Glucose Fingerstick 05/24/2024 Inhouse Glucose Fingerstick 107 Hemoglobin A1c 05/24/2024 Inhouse Hemoglobin A1c 5.7% Hemoglobin A1c 01/26/2024 Inhouse Hemoglobin A1c 6.0% Glucose Fingerstick 01/26/2024 Inhouse Glucose Fingerstick 112 Hemoglobin A1c 10/22/2023 Inhouse Hemoglobin A1c 6.1% Glucose Fingerstick 10/22/2023 Inhouse Glucose Fingerstick 115 Hemoglobin A1c 06/23/2023 Inhouse Hemoglobin A1c 5.9% Glucose Fingerstick 06/23/2023 Inhouse Glucose Fingerstick 128 Hemoglobin A1c 01/06/2023 Inhouse Hemoglobin A1c 8.0% Glucose Fingerstick 01/06/2023 Inhouse Glucose Fingerstick 141 Hemoglobin A1c 12/26/2021 Inhouse Hemoglobin A1c 6.7% Glucose Fingerstick 12/26/2021 Inhouse Glucose Fingerstick 169 1 Test(s) 352712-Ddlub tanephrine, Pl; 504568-Ltttragphgsj, Pl was developed and its performance characteristics determined by [facility]. It has not been cleared or approved by the Food and Drug Administration. Test(s) 590927-Dsfai Activity, Plasma was developed and its performance characteristics determined by [facility]. It has not been cleared or approved by the Food and Drug Administration. Procedures Date Code Description Status 03/31/2022 NSHOWOFF No Show Office Visit Complet ed Medical Devices Description No Information Available Encounters Type Date Location Provider Dx Diagnosis Office Visit 01/31/2025 1:00p Main Office Graham Rothman M.D. E11.9 Type 2 diabetes mellitus without complications E27.8 Other specified diso rders of adrenal gland Assessments Date Code Description Provider 01/31/2025 E11.9 Type 2 diabetes mellitus without complications Graham Rothman M.D. 01/31/2025 E27.8 Nodule of adrenal cortex Arlene Rothman M.D. Plan of Treatment Future Appointment(s):* 06/20/2025 1:15 pm - Graham Rothman M.D. at Main Office 01/26/2024 - Graham Rothman M.D.* E11.8 Complication due to diabetes mellitus * E11.40 Diabetic peripheral neuropathy * Functional Status Description No Information Available Mental Status Description No Information Available Referrals Description No Information Available
--- OUTSIDE RECORDS SUMMARY | 2025-02-09 13:14 | XMS_ITS | Clinical Summary ---
Author Organization [facility] Address [address] [place] [address] Care Team Providers Care Vocational Nursing Instructor Name Role Phone Unavailable Primary Care Provider Unavailabl e Social History Tobacco Use Types Packs/Day Years Used Date Smoking Tobacco: Never Assessed Sex and Gender Information Value Date Recorded Sex Assigned at Not on file Gender Identity Not on file Sexual Orientation Not on file Plan of Treatment Not on file
== END 2025-02-09 13:47 | disposition home or self-care (01) ==
LOC: HO.HMCHD 13:04
PROVIDERS: PCP Physician Assistant; Visit Provider Physician Assistant
DX: I71.21 Aneurysm of the ascending aorta, without rupture (principal); F31.9 Bipolar disorder, unspecified; E11.9 Type 2 diabetes mellitus without complications; G20.A1 Parkinson's disease without dyskinesia, without mention of fluctuations; I10 Essential (primary) hypertension

== ENCOUNTER → 2025-02-09 13:03 | Outpatient (BNVA) | payer MEDICARE, MEDICAID, SELFPAY | PROVIDERS: PCP Physician Assistant; Visit Provider Physician Assistant | DX: I71.21 Aneurysm of the ascending aorta, without rupture (principal); F31.9 Bipolar disorder, unspecified; E11.9 Type 2 diabetes mellitus without complications; I10 Essential (primary) hypertension; G20.A1 Parkinson's disease without dyskinesia, without mention of fluctuations | CPT/HCPCS: 96127; 99202 ==

== ENCOUNTER 2025-03-07 12:55 | Outpatient (AMB) | payer MEDICARE, MEDICAID, SELFPAY ==
[2025-03-07 13:08] VITALS: BP 120/60; PULSE 73; O2SAT 94; BMI 33.5
--- NOTE | 2025-03-07 13:08 | A.OFFVIS_ITS ---
Vital Signs 03/07/25 13:08 Height 5 ft 9 in Weight 227 lb BMI 33.5 BP 120/60 Blood Pressure Location Lt brachial Position Sitting Pulse 73 Pulse Source Pulse Oximeter Pulse Oximetry (%) 94 Oxygen Delivery Method Room Air Intake Visit Reasons: 6 mo follow up Intake Note: Patient presents follow up Parkinson's/SANDRO mediation. Compliance in chart Wafer Line Worker Required: No Accompanied by: Self / Same As Patient Allergies celecoxib (Celebrex) Allergy (Severe, Verified 03/07/25 13:11) face/eye swelling pregabalin Allergy (Intermediate, Verified 03/07/25 13:11) rash HPI Comments Details: 69-year-old male presenting with a follow-up for Parkinson's disease and obstructive sleep apnea and hypersomnia, and migraine headache. Notices some episodes of not feeling the ground and having difficulty initiating a step. May feel wobbly if standing still, attributes to not feeling his feet, especially if he has been sitting for awhile. Sometimes the sole of his feet will feel painful pulling tightness if sitting for awhile. Feels that his neuroapthy symptoms are a bit better since he started using a BLE thigh to feet compression device and his peripheral swelling has reduced. Activities of daily living (ADL's): Independent Instrumental activities of daily living (IADL's): Independent Swallowing difficulty: Reports rare difficulty, typically only if he takes his meds while standing up. 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 Can have lightheadedness when sitting. Constipation: Reports still increase since starting Jardiance- managed with water and occasional MiraLAX Urinary symptoms: Improved- f/b urology. Tremor: Occasional, in pinkies Dyskinesia: None Stiffness: Reports constant stiffness and muscle spasms Musculoskeletal symptoms: Reports muscle pains and spasms Gait difficulties or changes: as above Freezing episodes of gait: as above Falls: Denies Mood difficulties or changes: Reports he is doing ok, sometimes can feel a bit down Hallucinations: Denies Memory difficulties or changes: Reports short-term memory issues or difficulty pulling up a name Sleep difficulties: Sleep apnea well controlled with CPAP. Uses zolpidem for sleep as needed. And Adderall IR 50 mg twice a day as needed for daytime hypersomnia. Exercise routine: Not going to the gym as much since he moved. Uses his home weights sometimes. Socialization and cognitive activities: Works one day a week, does logic problems to stimulate brain Headache: Has not had a recent severe migraine attack, but may wake up with a splitting headache or have a mild-moderate migraine attack a few days per week- tries not to take Nurtec but it is still helpful when he does take it. Compliance Report, Usage 01/06/2025 - 03/06/2025 Usage days 60/60 days (100%) Usage >= 4 hours 58 days (97%) Average usage (days used) 6 hours 47 minutes AirSense 11 AutoSet Serial number [id number] Mode CPAP 13 cmH2O w/ EPR 2 Therapy: Leaks - L/min Median: 9.1 95th percentile: 22.4 Maximum: 27.4 Events per hour AI: 1.4 HI: 1.2 AHI: 2.6 PFSH Medical History (Updated 03/07/25 @ 18:07 by ADALBERTO Martin) Hypertension Thoracic ascending aortic aneurysm Type 2 diabetes mellitus Adrenal gland cyst Parkinson disease Bipolar 2 disorder Surgical History S/P laser cataract surgery History of cholecystectomy History of knee replacement H/O neck surgery Family History Father Heart attack Mother Congestive heart failure Social History Household Members: Significant Other Alcohol intake: never Patient Tobacco Use Status: Former Tobacco user Physical Exam Vital Signs: Last Vital Signs Pulse 73 03/07/25 13:08 BP 120/60 03/07/25 13:08 Pulse Ox 94 03/07/25 13:08 Oxygen Delivery Method Room Air 03/07/25 13:08 BMI result Body Mass Index 33.5 Const General: cooperative and no acute distress Resp Effort & Inspection: normal respiratory effort and able to speak in complete sentences Neuro Other: General: A&O x's 3 Expression:? Mild decreased expression blink Voice:? Soft voice Tremor:? No tremor today Tone: mild BUE tone Dyskinesia: None FFM: mildly decreased Foottaps: mildly decreased, more so on left Gait:? Stands up today, slight stoop, decreased arm swing, stride ok, steady gait Psych:? Pleasant affect Assessment & Plan Assessment & Plan (1) Parkinson's disease without dyskinesia: Comment: Positive JOELLEN scan, tremor, stiffness Code(s): G20.A1 - Parkinson's disease without dyskinesia, without mention of fluctuations Category: Medical Qualifiers: Fluctuating manifestations: without fluctuating manifestations Qualified Code(s): G20.A1 - Parkinson's disease without dyskinesia, without mention of fluctuations (2) Obstructive sleep apnea (adult) (pediatric): Code(s): G47.33 - Obstructive sleep apnea (adult) (pediatric) Category: Medical (3) Hypersomnia due to medical condition: Comment: d/t Parkinson's and SANDRO. Code(s): G47.14 - Hypersomnia due to medical condition Category: Medical (4) Gait difficulty: Code(s): R26.9 - Unspecified abnormalities of gait and mobility Category: Medical Plan For PD, hypersomnia, SANDRO: Continue carbidopa levodopa 25-100mg 1 tab TID PT eval and treat-for gait difficulties, bradykinesia. Simple foot strengthening exercises and foot massages shared with patient Continue speech therapy exercises. Continue CPAP. Continue Adderall at 15mg ER q.a.m. prn for hypersomnia and ADD treatment. Previously shared sleep education resources, such as Say Jorge to Insomnia by Dr Jordin Valencia or similar CBTi resources. Future considerations- increasing Adderall, trying Sunosi. (would need to ensure HTN well-controlled).? For anxiety and decreased motivation in setting of h/o bipolar d/o: October 2024 CBC and CMP within normal limits Continue psychotherapy Pt previously had psych consult w/ Dr Monroes. Pt has stopped Trileptal and lamotrigine. Monitor mood. For migraine headache: For migraine prevention: * Continue Mag for migraine prevention. * Continue diltiazem-order primarily for HTN. * Previous migraine prevention headache tx trials: Amitriptyline- caused am drowsiness. Nortriptyline- not tolerated. For acute migraine treatment: * Continue Rimegepant ODT (Nurtec ODT) 75mg, 1 tab at onset of headache.. Max of 1 tabs (75mg) per 24 hours. May adjunct with OTC Tylenol 650mg q 4 hours, Ibuprofen 600mg q 6 hours, or Naproxen 440mg q 12 hrs as needed. * Acute migraine treatment contraindications: All triptans and DHE due to uncontrolled hypertension. ? will f/u in 6 months or sooner prn. Orders: Orders PT Evaluation and Treatment Today G20.A1 - Parkinson's disease without dyskinesia, without mention of fluctuations, R26.9 - Unspecified abnormalities of gait and mobility Coding Level of Care Code Est Pt Level 4 (44618) Complex EM visit Add On G2211 Diagnoses Parkinson's disease without dyskinesia or fluctuating manifestations G20.A1 Fluctuating manifestations: without fluctuating manifestations Obstructive sleep apnea (adult) (pediatric) G47.33 Hypersomnia due to medical condition G47.14 Gait difficulty R26.9
--- OUTSIDE RECORDS SUMMARY | 2025-03-07 14:10 | XMS_ITS | Clinical Summary ---
Author Organization [facility] Address [address] [place] [address] Care Team Providers Care Electrolytic De Scaler Name Role Phone Unavailable Primary Care Provider Unavailabl e Social History Tobacco Use Types Packs/Day Years Used Date Smoking Tobacco: Never Assessed Sex and Gender Information Value Date Recorded Sex Assigned at Not on file Gender Identity Not on file Sexual Orientation Not on file Plan of Treatment Not on file
--- OUTSIDE RECORDS SUMMARY | 2025-03-07 14:10 | XMS_ITS | Continuity of Care Document ---
Author Organization [facility] [address] [place] [address] Phone [phone] Problems Active Problems Provider Date Type 2 [...] SIG Qnty Indications Order ing Provider Date Ffjmdshbd17tf Tablets 1 tablet by mouth every day 90tabs Graham Rothman M.D. 5 Gklfptjxhvjci2do Tablets 1 tabs by mouth at 11pm 1tabs Graham Rothman M.D. 5 Mounjaro7.5mg/0.5ML Solution Auto-Inject Inject 0.5 ML Every Week 6ml E11.9 Graham Rothman M.D. 4 Smpcewznkw574bg Capsules Take One Capsule By Mouth Daily AT Bedtime 90caps Graham Rothman M.D. 4 Freestyle Elsie 3/Sensor/Glucose Monitoring Ngouja5Tzcaje Misc as directed 3units Graham Rothman M.D. 4 Careone Unifine Pen 32G X4mm Use One Needle Subcutaneously Four Times A Day 200units E11.9 Graham Rothman M.D. 3 Freestyle Elsie 2/Sensor/Flash Glucose Monitoring Amxusx4Lelubt Misc 1 sensor to skin every fourteen days as directed 6units Graham Rothman M.D. 3 Onetouch UltraStrips Use as Directed Fou r Times A Day DX: E11.9 400units E11.9 Graham Rothman M.D. 2 Amphetamine-Dextroamp het ER10mg Caps ER 24HR Take One Capsule By Mouth Every Day Unknown 0 Methylphenidate QYZ05ry Tablets Take One Tablet By Mouth Every Afternoon as Needed For Drowsiness Unknown 0 Doxazosin Axkgkngz0ve Tablets Take One Tablet By Mouth Every Day AT Bedtime Unknown 0 Sfsholcbvj96zu Tablets Take One Tablet By Mouth Every Day Unknown 0 Ventolin FGN187(90Base) mcg/Act Aerosol Inhale Two Puffs By Mouth Four Times A Day as Needed For Shortness Of Breath. Unknown 0 Magnesium Ilawr193(240Mg) mg Tablets Take One Tablet By Mouth AT Bedtime Unknown 0 Onetouch UltraStrips Use as Directed Fou r Times A Day Unknown 0 Ugtjgmdafgeijm53vq Tablets Take Two Tablets By Mouth Every Day Unknown 0 Zolpidem Litaihbw79gc Tablets Take One Tablet By Mouth AT Bedtime Unknown 0 Fluticasone Bzhllkaxyz92ztj/Act Suspension Instill Two Sprays Into Each Nostril Once A Day Unknown 0 Diltiazem HCL ER Coated Yyjzc186bz Caps ER 24HR Take One Capsule By Mouth Every Day Unknown 0 BD32G Use One Needle Under The Skin Four Times A Day 200units Graham Rothman M.D. 0 Novolog Yjwwgwk715Vysb/ML Solution Pen-Inject Inject 7-10 Units Subcutaneously 3 Times A Day Dx: E11.9 45units E11.9 Graham Rothman M.D. 0 Carbidopa-Zpfrrxhr60- 100mg Tablets Take One Tablet By Mouth Three Times A Day Unknown 0 History Medications Insulin Glargine-Bsho775Dxhj/ML Solution Pen-Inject Inject 25 Units Under The Skin Once A Day AT Night 15units Graham Rothman M.D. 08/30/2024 - 01/31/2025 Metformin DAL412pi Tablets Take Two Tabl ets By Mouth Twice A Day 360tabs Graham Rothman M.D. 08/10/2024 - 08/30/2024 Semglee (Yfgn)100Unit/ML Solution Pen-Inject inject 45 units subcutaneously once a day at night dx: e11.9 15ml Graham Rothman M.D. 05/02/2024 - 08/30/2024 Levemir Hczidmg877Dfal/ML Solution Pen-Inject Inject 65 Units Subcutaneously Once A Day 60ml Graham Rothman M.D. 2024 - 05/02/2024 Vital Signs Date Vital Result Comment 01/31/2025 1:08pm BP Systolic 130 mmHg BP Diastolic 70 mmHg Heart Rate 72 /min Height 69 inches 5'9 Weight 229.50 lb BMI (Body Mass Index) 33.9 kg/m2 Results Test Acquired Date Facility Test Result H/L Range N ote Cortisol 03/05/2025 [facility] Cortisol 0.8 g/dL Low 6.2-19.4 1 Renin Activity Plasma 01/31/2025 [facility] Renin Activity Plasma <pending> Aldosterone LC/MS, Serum 01/31/2025 [facility] Aldosterone LC/MS, Serum <pending> Cortisol 01/31/2025 [facility] Cortisol <pending> Hemoglobin A1c 01/31/2025 Inhouse Hemoglobin A1c 6.2% Glucose Fingerstick 01/31/2025 Inhouse Glucose Fingerstick 161 Metanephrines Frac., PL, Free 09/01/2024 [facility] Normetanephrine, Pl 46.2 pg/mL 0.0-285.2 2 Metanephrine, Pl <25.0 pg/mL 0.0 -88.0 Renin [...] Fingerstick 12/26/2021 Inhouse Glucose Fingerstick 169 1 Please Note: The ref erence interval and flagging for this test is for an AM collection. If this is a PM collection please use: Cortisol PM: 2.3-11.9 2 Test(s) 842567-Uucft tanephrine, Pl; 088974-Fczerxfzxopv, Pl was developed and its performance characteristics determined by [facility]. It has not been cleared or approved by the Food and Drug Administration. Test(s) 838405-Oimva Activity, Plasma was developed and its performance [...]
--- OUTSIDE RECORDS SUMMARY | 2025-03-07 14:10 | XMS_ITS | Encounter Summary ---
Author Organization [facility] Address [address] [facility] [address] [place] [address] Phone Care Team Providers Care Tire Mounter Name Role Phone Jason Owens Primary Care Provider [phone] Reason for Visit * Reason Comments Med Refill Encounter Details Date Type Department Care Team (Late Contact Info) Description 11/07/2020 Refill [facility] [address] [facility] [address] [place] [phone] Ravindra Currie MD [address] [address] Social History Tobacco Use Types [...] Visit [facility] [address] [place] [phone] Ravindra Currie MD [address] [address] documented as of this encounter Visit Diagnoses Not on filedocumented in this encounter Care Teams Tire Mounter Relationship Specialty Start Date End Date Jason Owens DO [address] [place] [address] PCP - General Spare Fixer 06/17/20 documented as of this encounter
--- OUTSIDE RECORDS SUMMARY | 2025-03-07 14:10 | XMS_ITS | Clinical Summary ---
Author Organization [facility] Address [address] [facility] [address] [place] [address] Phone Care Team Providers Care Dna Sequencing Associate Name Role Phone Owens, Jason Guru SNEED Primary Care Provider [phone] Allergies Active Allergy Reactions Criticality Noted Date Comments Celecoxib Other (see comments) 07/11/2020 Gabapentin 07/05/2021 Pregabalin 07/05/2021 Medications albuterol HFA (PROVENTIL HFA;VENTOLIN HFA) 108 (90 Base) MCG/ACT inhaler by Other route Activ e fluticasone (FLONASE) 50 MCG/ACT nasal spray [place] as directed Active insulin aspart (NovoLOG) 100 [...] Of [place] [address] [place] [address] Ravindra Currie MD 01/05/2025 Refill [facility] [address] [place] [address] Ravindra Currie MD from Last 3 Months [...] Office Visit [facility] [address] [place] [address] Ravindra Currie MD [address] [address] Health Maintenance Due Date Last [...] Medicaid [place] Medicaid [place] Care Teams Dna Sequencing Associate Relationship Specialty Start Date End Date Jason Owens DO [address] [place] [address] PCP - General Metal Hanging Helper 06/17/20
--- OUTSIDE RECORDS SUMMARY | 2025-03-07 14:10 | XMS_ITS | Clinical Summary ---
Author Organization [facility] it Address [address] [place] [address] Care Team Providers Care Manager Route Name Role Phone Jason Owens DO Primary Care Provider [phone] Encounters Date Type Department Care Team Description 02/26/2025 Telephone [facility] [address] [facility] [address] [place] [address] Faustino Vick MD from Last 3 Months Surgical History Surgery Date Site/Laterality Comments OTHER SURGICAL HISTORY 09/27/2017 PROCEDURE: HISTORY OTHER; COMMENT: Parotidectomy COLONOSCOPY 11/04/2012 PROCEDURE: HISTORICAL COLONOSCOPY OTHER SURGICAL HISTORY Left PROCEDURE: AK LAPAROSCOPY ADRENALECTOMY PRTL/COMPL TABDL CHOLECYSTECTOMY PROCEDURE: HISTORICAL CHOLECYSTECTOMY TOTAL KNEE ARTHROPLASTY Bilateral PROCEDURE: AK ARTHRP KNE CONDYLE&PLATU MEDIAL&LAT COMPARTMENTS OTHER SURGICAL HISTORY 2012 PROCEDURE: HISTORY OTHER; COMMENT: C6-C7 Discectomy Medical History Medical History Date Comments Asthma DX:Asthma CKD (chronic kidney disease) DX: CKD (chronic kidney disease) COPD without exacerbation (C MS/HCC V24, CMS/HCC V28) DX:COPD without exacerbation (HCC) Morbid obesity (CMS/HCC V24, CMS/HCC V28) DX:Morbid obesity (HCC) Parkinson's disease (CMS/HCC V24, CMS/HCC V28) DX:Parkinson's disease (HCC) Prostate cancer screening DX:Pro state cancer screening Restrictive lung disease DX:Rest rictive lung disease Sleep apnea DX:Sleep apnea Thyroid nodule DX:Thyroid nodul e Diabetes mellitus, type 2 (C MS/HCC V24, CMS/HCC V28) DX:Diabetes mellitus, type 2 (HCC) History of neck pain DX:History of neck pain Family History Relation Name Status Comments Father Mother Social History Tobacco Use Types Packs/Day Years Used Date Smoking Tobacco: Former Smokeless Tobacco: Never Alcohol Use Standard Drinks/Week Comments Not Currently 0 (1 standard drink = 0.6 oz pur e alcohol) Sex and Gender Information Value Date Recorded Sex Assigned at Not on file Legal Sex Male 6:56 AM EST Gender Identity Not on file Sexual Orientation Not on file Obstetrics History Last Filed Vital Signs Vital Sign Reading Time Taken Comments Blood Pressure 150/70 06/25/2023 9:04 AM EST Pulse 86 06/25/2023 9:04 AM EST Temperature - - Respiratory Rate - - Oxygen Saturation - - Inhaled Oxygen Concentration - - Weight 130 kg (286 lb) 06/25/2023 9:04 AM EST Height 175.3 cm (5' 9 ) 06/25/2023 9:04 AM EST Body Mass Index 42.23 06/25/2023 9:04 AM EST Plan of Treatment Health Maintenance Due Date Last Done Comments Colorectal Cancer Screening: Colonoscopy 1957 Diabetes: Annual GFR (Glomer ular Filtration Rate) 1957 Diabetes: Annual Foot Exam 1967 Diabetes: Annual Retina Eye Exam 1967 DTaP,Tdap,and Td Vaccines (1 - Tdap) 1976 Pneumococcal Vaccine: 50+ Ye ars (1 of 1 - PCV) 2007 Zoster Vaccines (1 of 2) 2007 RSV Immunization Adult Patie nts (1 - Risk 60-74 years 1-dose series) 2017 Abdominal Aortic Aneurysm (A AA) Screen 05/10/2022 Cholesterol Screening (Lipid Panel) 05/10/2022 Falls Risk Assessment 05/10/2022 Hepatitis C Screening 05/10/2022 Social Influencers of Health Screening 05/10/2022 Hypertension/CHF/CAD Annual BMP Blood Test 05/17/2022 Diabetes: Annual Urine Albumin-Creatinine Ratio (uACR) 05/19/2022 Diabetes: Blood Sugar Contro l Test (HGBA1C) 05/19/2022 Depression Screening 06/07/2024 COVID-19 Vaccine (1 - 2023-2 5 season) 2025 Influenza Vaccine (#1) 2025 HIB Vaccines Aged Out No longer eligi ble based on patient's age to complete this topic HPV Vaccines Aged Out No longer eligi ble based on patient's age to complete this topic Hepatitis A Vaccines Aged Out No long er eligible based on patient's age to complete this topic Hepatitis B Vaccines Aged Out No long er eligible based on patient's age to complete this topic IPV Vaccines Aged Out No longer eligi ble based on patient's age to complete this topic MMR Vaccines Aged Out No longer eligi ble based on patient's age to complete this topic Meningococcal ACWY Vaccine Aged Out N o longer eligible based on patient's age to complete this topic Meningococcal B Vaccine Aged Out No l onger eligible based on patient's age to complete this topic RSV Immunization Patients Un jordan 20 months Aged Out No longer eligible b ased on patient's age to complete this topic Varicella Vaccines Aged Out No longer eligible based on patient's age to complete this topic Care Teams Manager Route Relationship Specialty Start Date End Date Jason Owens DO [address], [place] PCP - General 05/07/11
== END 2025-03-07 14:09 | disposition home or self-care (01) ==
LOC: HO.HSMS 12:56
PROVIDERS: PCP Family Medicine; Visit Provider Nurse Practitioner Family
DX: G20.A1 Parkinson's disease without dyskinesia, without mention of fluctuations (principal); G47.33 Obstructive sleep apnea (adult) (pediatric); G47.14 Hypersomnia due to medical condition; R26.9 Unspecified abnormalities of gait and mobility
CPT/HCPCS: 99214; G2211

== ENCOUNTER → 2025-03-07 12:55 | Outpatient (BNVA) | payer MEDICARE, MEDICAID, SELFPAY | PROVIDERS: PCP Family Medicine; Visit Provider Nurse Practitioner Family | DX: G20.A1 Parkinson's disease without dyskinesia, without mention of fluctuations (principal); G47.33 Obstructive sleep apnea (adult) (pediatric); G47.14 Hypersomnia due to medical condition; R26.9 Unspecified abnormalities of gait and mobility; Z99.89 Dependence on other enabling machines and devices; F41.9 Anxiety disorder, unspecified; G43.909 Migraine, unspecified, not intractable, without status migrainosus | CPT/HCPCS: 99212 ==